=== PATIENT | male | born 1945 | race Caucasian/White ===

== ENCOUNTER 2019-07-15 13:50 | Emergency (ER) | payer MEDICARE, OTHER ==
[~2019-07-15] VITALS: Ht 177.8 cm; Wt 83.9 kg
--- OUTSIDE RECORDS SUMMARY | ~2019-07-15 | XMS | Clinical Summary ---
Demographics + + + | Address | [address] | | | [place] [address] | + + + | Home Phone | | + + + | Preferred Language | Unknown | + + + | Marital Status | | + + + | Taoism Affiliation | 1041 | + + + | Race | Unknown | + + + | Ethnic Group | Unknown | + + + Author + + + | Author | [facility] | | | and [place] | + + + | Organization | [facility] | | | and [place] | + + + | Address | Unknown | + + + | Phone | Unavailable | + + + Support + + +---------+ + | Name | Relationship | Address | Phone | + + +---------+ + | RICCI CHOI ECON | Unknown | | + + +---------+ + Care Team Providers + +------+ + | Care Central Melt Specialist Name | Role | Phone | + +------+ + PCP | Unavailable | + +------+ + Allergies Not on File Medications Not on file Active Problems Not on file Social History + +-------+ +--------+------+ | Tobacco [...] | + + Last Filed Vital Signs Not on file Plan of Treatment + + + + [...] | | + + + + + Results Not on filefrom Last 3 Months"
--- OUTSIDE RECORDS SUMMARY | ~2019-07-15 | XMS | Clinical Summary ---
Demographics + + + | Address | [address] | | | [place] [address] | + + + | Home Phone | | + + + | Preferred Language | Unknown | + + + | Marital Status | | + + + | Latter-Day Affiliation | 1041 | + + + | Race | Unknown | + + + | Ethnic Group | Unknown | + + + Author + + + | Author | [facility] | | | and [place] | + + + | Organization | [facility] | | | and [place] [...] Team Providers + +------+ + | Care Tone Cabinet Assembler Name | Role | Phone | [...]
--- OUTSIDE RECORDS SUMMARY | 2019-07-15 13:52 | XMS ---
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 Shavon has no Care Guidelines for this patient. Cesar VISIT COUNT (12 MO.) 1 ADRIÁN Saldaña TOTAL 1 NOTE: Visits indicate total known visits. ED/UCC VISIT TRACKING (12 MO.) 07/15/2019 13:50 ADRIÁN Sims OR TYPE: Emergency COMPLAINT: - FALL/EXTREMITY PAIN INPATIENT VISIT TRACKING (12 MO.) No inpatient visits to display in this time frame [email or web address]
[2019-07-15] MEDS ORDERED: COZAAR100 MG PO (14:25)
[2019-07-15] MEDS ORDERED: ULTRAM50 MG PO ×2 (14:29→14:30)
[2019-07-15] MEDS ORDERED: TIMOLOL MALEATE5 M4 OU (14:31)
--- NOTE | 2019-07-16 07:26 | EKG ---
[facility] [address] [facility] [place] [address] Signed Sinus rhythm with occasional premature ventricular complexes Left axis deviation Low voltage QRS T wave abnormality, consider anterior ischemia Abnormal ECG Confirmed by NIMISHA DAO MD ([id number]) on 07/16/2019 7:26:18 AM Electronically Signed By: NIMISHA DAO MD 07/16/19 0726 PATIENT NAME: DAWIT CHOI JR Electrocardiogram DATE OF : 43 PHYSICIAN: NIMISHA DAO MD REPORT #: [id number] REPORT IS CONFIDENTIAL AND NOT TO BE RELEASED WITHOUT AUTHORIZATION
== END 2019-07-15 17:15 | disposition short-term general hospital (02) ==
LOC: ED 13:50
DX: S72.002A Fracture of unspecified part of neck of left femur, initial encounter for closed fracture (principal); I10 Essential (primary) hypertension; Z86.73 Personal history of transient ischemic attack (TIA), and cerebral infarction without residual deficits; Z87.891 Personal history of nicotine dependence; Z79.899 Other long term (current) drug therapy; X58.XXXA Exposure to other specified factors, initial encounter
CPT/HCPCS: 73502; 73552; 93005; 93010; 96374; 96376; 99284-25; J1170

== ENCOUNTER 2019-07-18 10:15 | Inpatient (IN) | payer MEDICARE, OTHER ==
[~2019-07-18] VITALS: Ht 177.8 cm; Wt 83.9 kg
--- OUTSIDE RECORDS SUMMARY | ~2019-07-18 | XMS | Clinical Summary ---
Demographics + + + | Address | [address] | | | [place] [address] | + + + | Home Phone | | + + + | Preferred Language | Unknown | + + + | Marital Status | | + + + | Shinto Affiliation | 1041 | + + + | Race | Unknown | + + + | Ethnic Group | Unknown | + + + Author + + + | Author | [facility] | | | and [place] | + + + | Organization | [facility] | | | and [place] | + + + | Address | Unknown | + + + | Phone | Unavailable | + + + Support + + +---------+ + | Name | Relationship | Address | Phone | + + +---------+ + | RICCI HANDLEY | ECON | Unknown | | + + +---------+ + Care Team Providers + +------+ + | Care Machine Crater Name | Role | Phone | + +------+ + | No, Physician | PCP | Unavailable | + +------+ + Allergies No Known Allergies Medications + + + +---------+------+------+-------+ | Medication | Sig | Dispensed | Refills | Star | End | Statu | | | | | | t | Date | s | | | | | | Date | | | + + + +---------+------+------+-------+ | timolol maleate | Place 1 drop into | | 0 | | | Activ | | (TIMOPTIC) 0.25% | both eyes 2 times | | | | | e | | ophthalmic solution | daily. | | | | | | + + + +---------+------+------+-------+ | clopidogrel | Take 75 mg by mouth | | 0 | | | Activ | | (PLAVIX) 75 mg | Daily. | | | | | e | | tablet | | | | | | | + + + +---------+------+------+-------+ | amLODIPine | Take 1 tablet by | 30 | 0 | 10/3 | | Activ | | (NORVASC) 5 mg | mouth Daily. | tablet | | 0/20 | | e | | tablet | | | | 19 | | | + + + +---------+------+------+-------+ | enoxaparin | Inject 0.4 mLs under | 3 mL | 0 | 10/3 | 11/0 | Activ | | (LOVENOX) 40 mg/0.4 | the skin every 24 | | | 0/20 | 6/20 | e | | mL injection | hours for 7 days. | | | 19 | 19 | | + + + +---------+------+------+-------+ | oxyCODONE | Take 1 tablet by | 10 | 0 | 10/3 | | Activ | | (ROXICODONE) 5 mg | mouth every 8 hours | tablet | | 0/20 | | e | | tablet | as needed (severe | | | 19 | | | | | pain). | | | | | | + + + +---------+------+------+-------+ | senna (SENOKOT) | Take 1 tablet by | 14 | 0 | 10/3 | | Activ | | 8.6 mg tablet | mouth 2 times daily. | tablet | | 0/20 | | e | | | | | | 19 | | | + + + +---------+------+------+-------+ | famotidine | Take 1 tablet by | 60 | 0 | 10/3 | | Activ | | (PEPCID) 20 mg | mouth 2 times daily. | tablet | | 0/20 | | e | | tablet | | | | 19 | | | + + + +---------+------+------+-------+ | losartan (COZAAR) | Take 100 mg by mouth | | 0 | | 10/3 | Disco | | 100 MG tablet | Daily. | | | | 0/20 | ntinu | | | | | | | 19 | ed | + + + +---------+------+------+-------+ | amLODIPine | Take 10 mg by mouth | | 0 | | 10/2 | Disco | | (NORVASC) 5 mg | Daily. | | | | 7/20 | ntinu | | tablet | | | | | 19 | ed | + + + +---------+------+------+-------+ | traMADol (ULTRAM) | Take 50-100 mg by | | 0 | | 10/3 | Disco | | 50 mg tablet | mouth 2 times daily. | | | | 0/20 | ntinu | | | | | | | 19 | ed | + + + +---------+------+------+-------+ | amLODIPine | Take 10 mg by mouth | | 0 | | 10/3 | Disco | | (NORVASC) 10 MG | Daily. | | | | 0/20 | ntinu | | tablet | | | | | 19 | ed | + + + +---------+------+------+-------+ Active Problems + + + | Problem | Noted Date | + + + | Closed displaced subtrochanteric fracture of left femur, initial | 07/15/2019 | | encounter | | + + + + + | Overview: Added automatically from request for surgery | | [id number] | + + + + + | History of CVA with residual deficit | 07/15/2019 | + + + | Essential hypertension | 07/15/2019 | + + + Encounters +--------+ + + + + | Date | Type | Specialty | Care Team | Description | +--------+ + + + + | 07/15/ | Anesthesia | | Edie Mace, | | | 2018 | Event | | MD | | +--------+ + + + + | 07/15/ | Surgery | | | ORIF IM RODDING | | 2019 | | | | FEMUR | +--------+ + + + + | 07/15/ | Hospital | General Surgery | Jose Martin Paulino MD | Closed displaced | | 2018 - | Encounter | | Greyson Corona, | subtrochanteric | | | | | MD Coles, | fracture of left | | 07/18/ | | | MD Sharita | femur, initial | | 2018 | | | | encounter (HCC) | | | | | | (Primary Dx); Closed | | | | | | displaced | | | | | | subtrochanteric | | | | | | fracture of left | | | | | | femur, initial | | | | | | encounter (HCC); | | | | | | History of CVA with | | | | | | residual deficit; | | | | | | Essential | | | | | | hypertension; | | | | | | Anemia, normocytic | | | | | | normochromic | +--------+ + + + + | 07/15/ | Imaging | Radiology | Provider, | | | 2018 | Exam | | MD Nancy | | +--------+ + + + + | 07/15/ | Imaging | Radiology | Provider, | | | 2019 | Exam | | Historical, MD | | +--------+ + + + + from Last 3 Months Social History + +-------+ +--------+------+ | Tobacco Use | Types | Packs/Day | Years | Date | | | | | Used | | + +-------+ +--------+------+ | Former Smoker | | | | | + +-------+ +--------+------+ + +---+---+---+ | Smokeless Tobacco: | | | | | Never Used | | | | + +---+---+---+ + + +---------+ + | Alcohol Use | Drinks/We | oz/Week | Comments | | | ek | | | + + +---------+ + | Not Currently | | | | + + +---------+ + + + + | Sex Assigned at | Date Recorded | | | | + + + | Not on file | | + + + + + + + | Job Start Date | Occupation | Industry | + + + + | Not on file | Not on file | Not on file | + + + + + + + + | Travel History | Travel Start | Travel End | + + + + + + | No recent travel history available. | + + Last Filed Vital Signs + + + + | Vital Sign | Reading | Time Taken | + + + + | Blood Pressure | 136/71 | 07/18/20191105 PDT | + + + + | Pulse | 84 | 07/18/20191105 PDT | + + + + | Temperature | 36.8 C (98.3 F) | 07/18/20191105 PDT | + + + + | Respiratory Rate | 18 | 07/18/20191105 PDT | + + + + | Oxygen Saturation | 99% | 07/18/2019 1106 PDT | + + + + | Inhaled Oxygen | - | - | | Concentration | | | + + + + | Weight | 84.8 kg (187 lb) | 07/16/2019 0000 PDT | + + + + | Height | 177.8 cm (5' 10") | 07/16/2019 0000 PDT | + + + + | Body Mass Index | 26.83 | 07/16/2019 0000 PDT | + + + + Plan of Treatment + + + + + | Health Maintenance | Due Date | Last Done | Comments | + + + + + | Vaccine: | | | | | Dtap/Tdap/Td (1 - | 3 | | | | Tdap) | | | | + + + + + | Colorectal Cancer | | | | | Screening | 4 | | | | (Colonoscopy) | | | | + + + + + | Vaccine: Zoster (1 | | | | | of 2) | 4 | | | + + + + + | AAA Screening | | | | | | 9 | | | + + + + + | Vaccine: | | | | | Pneumococcal 65+ | 9 | | | | Low/Medium Risk (1 | | | | | of 2 - PCV13) | | | | + + + + + | Vaccine: Influenza | | | | | (#1) | 9 | | | + + + + + | Adult Annual | | | | | Wellness Visit | 9 | | | + + + + + Implants + +-------+--------+ +--------+--------+--------+ | Implanted | Type | Area | Manufacture | Device | Shelf | Model | | | | | r | | Expira | / | | | | | | Identi | tion | Serial | | | | | | fier | Date | / Lot | + +-------+--------+ +--------+--------+--------+ | Nail G3 Lt 125d [id number] - | Nail | Left: | ANGELICA | | 12/17/ | 3525-1 | | SnaImplanted: Qty: 1 on | | Femur | MEDICAL - | | 2023 | [id number] | | 07/15/2019 by Juani | | | STRY | | | /NA | | Will Irving MD | | | | | | /[id number] | | | | | | | | ES | + +-------+--------+ +--------+--------+--------+ | Screw Lag Gamma3 Ti | Screw | Left: | ANGELICA | | 01/16/ | 3060-0 | | [id number] - SnaImplanted: | | Femur | MEDICAL - | | 2023 | 110S | | Qty: 1 on 07/15/2019 by | | | STRY | | | /NA | | Will Gloria MD | | | | | | /[id number] | | | | | | | | C9 | + +-------+--------+ +--------+--------+--------+ | Screw Santos F/T T2 Ti 5x52.5mm | Screw | Left: | ANGELICA | | 03/18/ | 1896-5 | | - SnaImplanted: Qty: 1 on | | Femur | MEDICAL - | | 2023 | [id number] | | 07/15/2019 by Juani, | | | STRY | | | /NA | | Will Irving MD | | | | | | /[id number] | | | | | | | | 0D | + +-------+--------+ +--------+--------+--------+ | Screw Santos F/T T2 Ti 5x57.5mm | Screw | Left: | ANGELICA | | 02/16/ | 1896-5 | | - SnaImplanted: Qty: 1 on | | Femur | MEDICAL - | | 2021 | [id number] | | 07/15/2019 by Juani, | | | FRANCIA | | | /NA | | Will Irving MD | | | | | | /[id number] | | | | | | | | 21 | + +-------+--------+ +--------+--------+--------+ Procedures + +--------+ + + + | Procedure Name | Priori | Date/Time | Associated Diagnosis | Comments | | | ty | | | | + +--------+ + + + | RENAL FUNCTION PANEL | Routin | 07/18/2019 | | Results for this | | | e | 4:47 PDT | | procedure are in the | | | | | | results section. | + +--------+ + + + | CBC NO DIFFERENTIAL | Routin | 07/18/2019 | | Results for this | | | e | 4:47 PDT | | procedure are in the | | | | | | results section. | + +--------+ + + + | URINALYSIS WITH | Routin | 07/16/2019 | | Results for this | | MICROSCOPIC WITH | e | 9:10 PDT | | procedure are in the | | CULTURE IF INDICATED | | | | results section. | + +--------+ + + + | CULTURE, URINE | Routin | 07/16/2019 | | Results for this | | | e | 9:10 PDT | | procedure are in the | | | | | | results section. | + +--------+ + + + | CBC NO DIFFERENTIAL | Routin | 07/16/2019 | | Results for this | | | e | 4:40 PDT | | procedure are in the | | | | | | results section. | + +--------+ + + + | BASIC METABOLIC | Routin | 07/16/2019 | | Results for this | | PANEL | e | 4:40 PDT | | procedure are in the | | | | | | results section. | + +--------+ + + + | FL C ARM | Routin | 07/15/2019 | | Results for this | | | e | 23:03 PDT | | procedure are in the | | | | | | results section. | + +--------+ + + + | ANE AIRWAY NOTE | Routin | 07/15/2019 | | Results for this | | | e | 21:51 PDT | | procedure are in the | | | | | | results section. | + +--------+ + + + | ORIF IM RODDING | | 07/15/2019 | Closed displaced | | | FEMUR | | 21:00 PDT | subtrochanteric | | | | | | fracture of left | | | | | | femur, initial | | | | | | encounter (HCC) | | + +--------+ + + + | PROTIME INR | STAT | 07/15/2019 | | Results for this | | | | 19:24 PDT | | procedure are in the | | | | | | results section. | + +--------+ + + + | BASIC METABOLIC | STAT | 07/15/2019 | | Results for this | | PANEL | | 19:24 PDT | | procedure are in the | | | | | | results section. | + +--------+ + + + | CBC NO DIFFERENTIAL | STAT | 07/15/2019 | | Results for this | | | | 19:24 PDT | | procedure are in the | | | | | | results section. | + +--------+ + + + | XR HIP LEFT 2-3 | Routin | 07/15/2019 | | Results for this | | VIEWS | e | 14:45 PDT | | procedure are in the | | | | | | results section. | + +--------+ + + + | XR FEMUR LEFT 2+VW | Routin | 07/15/2019 | | Results for this | | | e | 14:30 PDT | | procedure are in the | | | | | | results section. | + +--------+ + + + from Last 3 Months Results CBC no Differential (07/18/2019 4:47 PDT)Only the most recent of 3 results within the time period is included. + + + + + + | Component | Value | Ref Range | Performed | Pathologist | | | | | At | Signature | + + + + + + | WBC | 9.36 | 3.80 - 11.00 | [facility] | | | | | K/uL | LABORATORY | | + + + + + + | RBC | 2.55 (L) | 4.20 - 5.70 | [facility] | | | | | M/uL | LABORATORY | | + + + + + + | Hemoglobin | 8.0 (L) | 13.2 - 17.0 | [facility] | | | | | g/dL | LABORATORY | | + + + + + + | Hematocrit | 22.9 (L) | 39.0 - 50.0 % | [facility] | | | | | | LABORATORY | | + + + + + + | MCV | 89.6 | 80.0 - 100.0 fl | [facility] | | | | | | LABORATORY | | + + + + + + | MCH | 31.5 | 27.0 - 34.0 pg | [facility] | | | | | | LABORATORY | | + + + + + + | MCHC | 35.1 | 32.0 - 35.5 | [facility] | | | | | g/dL | LABORATORY | | + + + + + + | RDW-SD | 42.4 | 37 - 53 fl | [facility] | | | | | | LABORATORY | | + + + + + + | Platelet | 204 | 150 - 400 K/uL | [facility] | | | Count | | | LABORATORY | | + + + + + + | MPV | 7.0Comment: Testing | fl | [facility] | | | | performed at [facility], [address] | | LABORATORY | | | | [address], | | | | | | [place] [address] | | | | + + + + + + + + | Specimen | + + | Blood | + + + + + + + | Performing | Address | City/State/Zipcode | Phone Number | | Organization | | | | + + + + + | [facility] | [address] | [place] [address] | [phone] | + + + + + Renal Function Panel (07/18/2019 4:47 PDT) + + + + + + | Component | Value | Ref Range | Performed | Pathologist | | | | | At | Signature | + + + + + + | Na | 141 | 135 - 145 | [facility] | | | | | mmol/L | LABORATORY | | + + + + + + | K | 3.8 | 3.5 - 4.9 | [facility] | | | | | mmol/L | LABORATORY | | + + + + + + | Cl | 109 | 99 - 109 mmol/L | [facility] | | | | | | LABORATORY | | + + + + + + | CO2 | 25 | 23 - 32 mmol/L | [facility] | | | | | | LABORATORY | | + + + + + + | Anion Gap | 11 | 5 - 20 mmol/L | [facility] | | | | | | LABORATORY | | + + + + + + | Glucose | 92 | 65 - 99 mg/dL | [facility] | | | | | | LABORATORY | | + + + + + + | BUN | 10 | 8 - 25 mg/dL | [facility] | | | | | | LABORATORY | | + + + + + + | Creatinine | 0.7 | 0.70 - 1.30 | [facility] | | | | | mg/dL | LABORATORY | | + + + + + + | Calcium | 8.0 (L) | 8.5 - 10.5 | [facility] | | | | | mg/dL | LABORATORY | | + + + + + + | Albumin | 2.5 (L) | 3.3 - 4.8 g/dL | [facility] | | | | | | LABORATORY | | + + + + + + | Phosphorus | 2.0 (L) | 2.3 - 4.8 mg/dL | [facility] | | | | | | LABORATORY | | + + + + + + | Estimated | >60Comment: GFR <60: | >60 | [facility] | | | GFR | CHRONIC KIDNEY DISEASE, | mL/min/1.73m2 | LABORATORY | | | | IF FOUND OVER A 3 MONTH | | | | | | PERIOD.GFR <15: KIDNEY | | | | | | FAILURE.FOR | | | | | | AMERICANS, MULTIPLY THE | | | | | | CALCULATED GFR BY | | | | | | 1.210.This eGFR is | | | | | | calculated using the | | | | | | MDRD [facility] traceable | | | | | | equation.Testing | | | | | | performed at [facility], [address] | | | | | | [facility], | | | | | | [place] [address] | | | | + + + + + + + + | Specimen | + + | Blood | + + + + + + + | Performing | Address | City/State/Zipcode | Phone Number | | Organization | | | | + + + + + | [facility] | [address] | [place] [address] | [phone] | + + + + + Urinalysis with Microscopic with Culture if Indicated (07/16/2019 9:10 PDT) + + + + + + | Component | Value | Ref Range | Performed | Pathologist | | | | | At | Signature | + + + + + + | Color, UA | YELLOW | | [facility] | | | | | | LABORATORY | | + + + + + + | Clarity, UA | CLEAR | | [facility] | | | | | | LABORATORY | | + + + + + + | Specific | 1.030 | 1.002 - 1.030 | [facility] | | | [place], | | | LABORATORY | | | Urine | | | | | + + + + + + | Leukocyte | NEGATIVE | NEG | [facility] | | | esterase, | | | LABORATORY | | | UA | | | | | + + + + + + | Nitrite, UA | NEGATIVE | NEG | [facility] | | | | | | LABORATORY | | + + + + + + | Urobilinoge | <1.6 | <1.6 mg/dL | [facility] | | | n, Ur | | | LABORATORY | | + + + + + + | Protein, | NEGATIVE | NEG mg/dL | [facility] | | | Urine | | | LABORATORY | | | (mg/dL) | | | | | + + + + + + | pH, Urine | 5.0 | 5.0 - 8.0 | [facility] | | | | | | LABORATORY | | + + + + + + | Blood, UA | NEGATIVE | NEG | [facility] | | | | | | LABORATORY | | + + + + + + | Ketones, UA | 20 (A) | NEG mg/dL | [facility] | | | | | | LABORATORY | | + + + + + + | Bilirubin, | NEGATIVE | NEG | [facility] | | | UA | | | LABORATORY | | + + + + + + | Glucose, Ur | NEGATIVE | NEG mg/dL | [facility] | | | | | | LABORATORY | | + + + + + + | WBC UA | 0-2 | 0 - 5 /hpf | [facility] | | | | | | LABORATORY | | + + + + + + | RBC UA | 0-2 | 0 - 2 /hpf | [facility] | | | | | | LABORATORY | | + + + + + + | SQUAMOUS | NONE SEEN | /lpf | [facility] | | | EPITHELIAL | | | LABORATORY | | | UA | | | | | + + + + + + | BACTERIA UA | 1+ (A)Comment: Testing | NONE | [facility] | | | | performed at [facility], [address] | | LABORATORY | | | | [address], | | | | | | [place] [address] | | | | + + + + + + + + | Specimen | + + | Urine | + + + + + + + | Performing | Address | City/State/Zipcode | Phone Number | | Organization | | | | + + + + + | [facility] | [address] | [place] [address] | [phone] | + + + + + Culture, Urine (07/16/2019 9:10 PDT) + + + + + + | Component | Value | Ref Range | Performed | Pathologist | | | | | At | Signature | + + + + + + | RESULT | NO GROWTH | | [facility] | | | | | | LAB[facility]ATORY | | + + + + + + | RESULT | Testing performed at | | [facility] | | | | [facility], [address] [facility] | | LABORATORY | | | | [place] | | | | | | [id number]: Testing | | | | | | performed at [facility], [address] | | | | | | [facility] [place], | | | | | | [place] [address] | | | | + + + + + + + + | Specimen | + + | Urine | + + + + + + + | Performing | Address | City/State/Zipcode | Phone Number | | Organization | | | | + + + + + | [facility] | [address] | [place] [address] | [phone] | + + + + + Basic Metabolic Panel (07/16/2019 4:40 PDT)Only the most recent of 2 results within the period is included. + + + + + + | Component | Value | Ref Range | Performed | Pathologist | | | | | At | Signature | + + + + + + | Na | 140 | 135 - 145 | [facility] | | | | | mmol/L | LABORATORY | | + + + + + + | K | 4.2 | 3.5 - 4.9 | [facility] | | | | | mmol/L | LABORATORY | | + + + + + + | Cl | 107 | 99 - 109 mmol/L | [facility] | | | | | | LABORATORY | | + + + + + + | CO2 | 24 | 23 - 32 mmol/L | [facility] | | | | | | LABORATORY | | + + + + + + | Anion Gap | 13 | 5 - 20 mmol/L | [facility] | | | | | | LABORATORY | | + + + + + + | Glucose | 146 (H) | 65 - 99 mg/dL | [facility] | | | | | | LABORATORY | | + + + + + + | BUN | 20 | 8 - 25 mg/dL | [facility] | | | | | | LABORATORY | | + + + + + + | Creatinine | 1.1 | 0.70 - 1.30 | [facility] | | | | | mg/dL | LABORATORY | | + + + + + + | BUN/Creatin | 18 | | [facility] | | | ine Ratio | | | LABORATORY | | + + + + + + | Calcium | 8.5 | 8.5 - 10.5 | [facility] | | | | | mg/dL | LABORATORY | | + + + + + + | Estimated | >60Comment: GFR <60: | >60 | [facility] | | | GFR | CHRONIC KIDNEY DISEASE, | mL/min/1.73m2 | LABORATORY | | | | IF FOUND OVER A 3 MONTH | | | | | | PERIOD.GFR <15: KIDNEY | | | | | | FAILURE.FOR | | | | | | AMERICANS, MULTIPLY THE | | | | | | CALCULATED GFR BY | | | | | | 1.210.This eGFR is | | | | | | calculated using the | | | | | | MDRD [facility] traceable | | | | | | equation.Testing | | | | | | performed at [facility], [address] | | | | | | [facility], | | | | | | [place] [address] | | | | + + + + + + + + | Specimen | + + | Blood | + + + + + + + | Performing | Address | City/State/Zipcode | Phone Number | | Organization | | | | + + + + + | [facility] | [address] | [place] [address] | [phone] | + + + + + FL Matthew (07/15/2019 23:03 PDT) + + | Specimen | + + | | + + + + + | Impressions | Performed At | + + + | Fluoroscopic service for procedure. Signed by: Mariza | [facility] | | Christin Leroy Sign Date/Time: 07/16/2019 12:23 AM | | + + + + + + | Narrative | Performed At | + + + | FLUOROSCOPY C ARM CLINICAL INFORMATION: Left femur ORIF- | [facility] | | Gamma Nail FINDINGS: Fluoro Time: 201.3 seconds. Number of | | | images: 5 Air Kerma: 24.44 mGy Fluoroscopic assistance for | | | internal fixation of the left femur. Please refer to surgical notes | | | for details. | | + + + + + | Procedure Note | + + | Ron Cruz Results In - 07/16/2019 0026 PDT | | FLUOROSCOPY C ARM | | | | CLINICAL INFORMATION: | | Left femur ORIF- Gamma Nail | | | | FINDINGS: | | Fluoro Time: 201.3 seconds. Number of images: 5 Air Kerma: 24.44 mGy | | | | Fluoroscopic assistance for internal fixation of the left femur. | | Please refer to surgical notes for details. | | | | IMPRESSION: | | Fluoroscopic service for procedure. | | | | | | | | Signed by: Mariaa Dawkins Sadaf | | Sign Date/Time: 07/16/2019 12:23 AM | + + + +---------+ + + | Performing | Address | City/State/Zipcode | Phone Number | | Organization | | | | + +---------+ + + | [facility] | | | | + +---------+ + + Airway (07/15/2019 21:51 PDT) + + + | Narrative | Performed At | + + + | Edie Mace MD 07/15/2019 21:52 Anesthesia Airway | | | Placement 07/15/2019 21:27 Preprocedure check: patient | | | identified, oxygen, airway assessed, patient reassessment prior to | | | induction, airway equipment checked and suction Mask | | | ventilation: easy Successful technique: Mac Laryngoscope blade | | | size: 3 Airway grade: 1 (Full view of glottis) Other equipment: | | | stylette Attempts: 1 Airway type: endotracheal Size: 8 Cuffed: | | | cuffed Route, reference point: right side of mouth Tube depth: 23 cm | | | Tube secured with: adhesive tape Trauma: none Tube placement | | | verification: bilateral chest rise and carbon dioxide detection | | | Performing provider: Edie Mace MD Please see | | | intraoperative grid for any additional medication documentation. | | + + + + + | Procedure Note | + + | Edie Mace MD - 07/15/2019 2151 PDT Anesthesia Airway Nairnftbq14/27/2019 | | 21:27Preprocedure check: patient identified, oxygen, airway assessed, patient | | reassessment prior to induction, airway equipment checked and suctionMask ventilation: | | easySuccessful technique: MacLaryngoscope blade size: 3 Airway grade: 1 (Full view of | | glottis)Other equipment: styletteAttempts: 1Airway type: endotrachealSize: 8Cuffed: | | cuffedRoute, reference point: right side of mouthTube depth: 23 cmTube secured with: | | adhesive tapeTrauma: noneTube placement verification: bilateral chest rise and carbon | | dioxide detectionPerforming provider: MYLES Mayenlease see intraoperative grid | | for any additional medication documentation. | |Attempts: 1 | |Airway type: endotracheal | |Size: 8 | |Cuffed: cuffed | |Route, reference point: right side of mouth | |Tube depth: 23 cm | |Tube secured with: adhesive tape | |Trauma: none | |Tube placement verification: bilateral chest rise and carbon dioxide detection | |Performing provider: Edie Mace MD | | | | | | | |Please see intraoperative grid for any additional medication documentation. | + + Protime INR (07/15/2019 19:24 PDT) + + + + + + | Component | Value | Ref Range | Performed | Pathologist | | | | | At | Signature | + + + + + + | INR | 1.0Comment: REFERENCE | | [facility] | | | | RANGE:0.9 - | | LABORATORY | | | | 1.2 NON-ANTICOAGULATE | | | | | | D2.0 - 3.0 ALL OTHER | | | | | | THERAPEUTIC | | | | | | INDICATIONS2.5 - 3.5 | | | | | | MECHANICAL HEART VALVES, | | | | | | RECURRENT OR SYSTEMIC | | | | | | EMBOLISMTesting | | | | | | performed at [facility];[address] | | | | | [address];[place], [place] | | | | | | [address] | | | | + + + + + + + + | Specimen | + + | Blood | + + + + + + + | Performing | Address | City/State/Zipcode | Phone Number | | Organization | | | | + + + + + | [facility] | [address] | [place] [address] | [phone] | + + + + + XR Hip Left 2-3 Views (07/15/2019 14:45 PDT) + + | Specimen | + + | | + + + + + | Narrative | Performed At | + + + | External films for comparison only | [facility] | | | | | No results will be in the chart. | | + + + + +---------+ + + | Performing | Address | City/State/Zipcode | Phone Number | | Organization | | | | + +---------+ + + | [facility] | | | | + +---------+ + + XR Femur Left 2+Vw (07/15/2019 14:30 PDT) + + | Specimen | + + | | + + + + + | Narrative | Performed At | + + + | External films for comparison only | [facility] | | | | | No results will be in the chart. | | + + + + +---------+ + + | Performing | Address | City/State/Zipcode | Phone Number | | Organization | | | | + +---------+ + + | [facility] | | | | + +---------+ + + from Last 3 Months Insurance + +--------+ +--------+ + +--------+ | Payer | Benefi | Subscriber | Effect | Phone | Address | Type | | | t Plan | ID | maile | | | | | | / | | Dates | | | | | | Group | | | | | | + +--------+ +--------+ + +--------+ | MEDICARE | MED[employer] | [id number] | 05/20/20 | [phone] | | Medica | | | RE | | 09-Pre | 5 | | re | | | PART A | | sent | | | | | | AND B | | | | | | + +--------+ +--------+ + +--------+ | MODA | MODA | [id number] | 09/19/19 | [phone] | [address] | Indemn | | | HEALTH | | 19-Pre | 9 | [id number] | ity | | | MDCR | | sent | | [place], | | | | [place] | | | | [place] [id number] | | + +--------+ +--------+ + +--------+ + +--------+ +--------+ + + | Guarantor Name | Accoun | Relation to | Date | Phone | Billing Address | | | t Type | Patient | of | | | | | | | | | | + +--------+ +--------+ + + | Constantin Handley Melina | Person | Self [birth year] | [address] | | | al/Adam | | 1945 | [phone] | [place] | | | [place] | | | 0 (Home) | [phone] | + +--------+ +--------+ + + Advance Directives Patient has advance care planning documents, and code status on file. For more information, please contact:[facility] [place] [address] + + + + + | Code Status | Date | Date | Comments | | | Activated | Inactivated | | + + + + + | Full Code | 07/15/2019 | | | | | 19:16 | | | + + + + +
--- OUTSIDE RECORDS SUMMARY | ~2019-07-18 | XMS | Encounter Summary ---
Demographics + + + | Address | [address] | | | [place] [address] | + + + | Home Phone | | + + + | Preferred Language | Unknown | + + + | Marital Status | | + + + | Latter-Day Affiliation | 1041 | + + + | Race | Unknown | + + + | Ethnic Group | Unknown | + + + Author + + + | Author | [facility] | | | and [place] | + + + | Organization | [facility] | | | and [place] | + + + | Address | Unknown | + + + | Phone | Unavailable | + + + Support + + +---------+ + | Name | Relationship | Address | Phone | + + +---------+ + | RICCI CHOI | ECON | Unknown | | + + +---------+ + Care Team Providers + +------+ + | Care Grinding Machine Tender Name | Role | Phone | + +------+ + | No, Physician | PCP | Unavailable | + +------+ + Encounter Details +--------+ + + + + | Date | Type | Department | Care Team | Description | +--------+ + + + + | 07/15/ | Imaging | [facility] | Provider, | | | 2019 | Exam | [facility] | MD [address] | | | | | IMAGING | [place] | | | | | [phone] | [place] [id number] | | +--------+ + + + + Social History + +-------+ +--------+------+ | Tobacco Use | Types | Packs/Day | Years | Date | | | | | Used | | + +-------+ +--------+------+ | Never Assessed | | | | | + +-------+ +--------+------+ + + + | Sex Assigned at [...] recent travel history available. | + + documented as of this encounter Plan of Treatment Not on filedocumented as of this encounter Procedures + +--------+ + + + | [...] section. | + +--------+ + + + documented in this encounter Visit Diagnoses Not on filedocumented in this encounter"
--- OUTSIDE RECORDS SUMMARY | ~2019-07-18 | XMS | Encounter Summary ---
Demographics + + + | Address | [address] | | | [place] [address] | + + + | Home Phone | | + + + | Preferred Language | Unknown | + + + | Marital Status | | + + + | Amish Affiliation | [id number] | + + + | Race | Unknown | + + + | Ethnic Group | Unknown | + + + Author + + + | Author | [facility] | | | and [place] | + + + | Organization | [facility] | | | [...] Team Providers + +------+ + | Care Bunk Assembler Name | Role | Phone | + +------+ + | No, Physician | PCP | Unavailable | + +------+ + Reason for Visit Auth/Cert +--------+--------+ + + + + | Status | Reason | Specialty | Diagnoses / | Referred By | Referred To | | | | | Procedures | Contact | Contact | +--------+--------+ + + + + | | | | Diagnoses | | | | | | | Femur | | | | | | | fracture | | | +--------+--------+ + + + + Encounter Details +--------+---------+ + + + | Date | Type | Department | Care Team | Description | +--------+---------+ + + + | 07/15/ | Surgery | [facility] | | [facility] | | 2019 | | [facility] | | [facility]EM[facility] | | | | OPERATING ROOM [address] | | | | | | [facility] | | | | | | [place], [place] | | | | | | [address] | | | | | | [phone] | | | +--------+---------+ + + + Social History + +-------+ [...] + + documented as of this encounter Last Filed Vital Signs + + + + | Vital Sign | Reading | Time Taken | + + + + | Blood Pressure | 136/71 | 07/18/2019 1106 PDT | + + + + | Pulse | 84 | 07/18/20191105 PDT | + + + + | Temperature | 36.8 C (98.3 F) | 07/18/20191105 PDT | + + + + | Respiratory Rate | 18 | 07/18/20191105 PDT | + + + + | Oxygen Saturation | 99% | 07/18/20191105 PDT | + + + [...] 0000 PDT | + + + + documented in this encounter Discharge Summaries Sharita Colse MD - 07/18/2019 1107 PDT [facility]: Hospitalist Discharge Summary Date of Admission: 07/15/2019 Date of Discharge: 07/18/2019 Discharge Provider: Sharita Coles MD Consulting Provider: Dr. Gloria -Orthopedics discharge Diagnoses: Principal Problem: Closed displaced subtrochanteric fracture of left femur, initial encounter Active Problems: History of CVA with residual deficit Essential hypertension BRIEF HISTORY OF PRESENTATION: Constantin Handley is a 74 y.o. male with past medical history of HTN, hx of CVA with residual R sided weakness and impaired vision, who presented with a ground level fall, and sustained a L sided closed displaced subtrochanteric fracture of L femur, s/p ORIF on 06/20 04[address] Gloria. [facility]ics recommends continued DVT ppx. This should be continued until patient is more ambulatory. Patient has downtrending anemia, normocytic with no evidence of GI bleed. His last colonoscopy was >10 years ago, normal per report. I did extensive discussion with pt an d on discharge - summarized below, also placed on his discharge instructions. Orthoped ics would like to see the patient in 2 weeks for suture removal and xray of the femur. Laney ent has also had a good BM today. Stable VS. I discussed the discharge instructions with you and your extensively. So that it is clear I am summarizing what we discussed here. You are being discharged to swing bed for re habilitation. Her orthopedist is cleared for discharge. I hope you do well in rehab. We abdelrahman leandro found you to have normocytic anemia during this admission. Your hemoglobin is trending down however I am not sure that her initial hemoglobin is truly reflective of your baseline hemoglobin. You have had normal blood pressure, stable vital signs and no reported gastroin testinal bleeding signs and symptoms. As per our discussion, your was going to find ou t what her baseline hemoglobin was. I will order a repeat CBC to be done at the swing bed. I will also order referral for home and family living professor sooner related you are going to be endosc opy to figure out if you do have chronic blood loss anemia. If the hemoglobin dropped to 7 or below you are probably going to need blood transfusion. You are recommended to have DVT prophylaxis by your orthopedist. Therefore you are being discharged on enoxaparin, I discus sed this with you and your . Once more ambulatory, this can be discontinued. The patient is symptomatically improved and medically stable on discharge. Patient is given information on new medication side effects. Questions answered. Patient and family in agre ement with discharge plans. Advised to follow up closely with PCP for post hospitalization f ollow up as well as specialists seen this admission if indicated below or as discussed. DISCHARGE EXAM Vital Signs: BP 130/60 | Pulse 89 | Temp 36.9 C (98.4 F) (Oral) | Resp 18 | Ht 1.778 m (5' 10") | Wt 84.8 kg (187 lb) | SpO2 99% | BMI 26.83 kg/m Constitutional: Alert and oriented to person, place, and time. Appears well-developed and well-nourished. HEENT: Neck supple, no JVD, non icteric sclera. Cardiovascular: Normal rate, regular rhythm, no murmur Pulmonary/Chest: Effort normal and breath sounds normal. No stridor. No respiratory distres s. no wheezes. no rales. Abdominal: Soft. Bowel sounds are normal. No distension.There is no tenderness. Extremeties/Musculoskeletal: No edema. Neurological: Alert and oriented to person, place, and time. Skin: Skin is warm. No diaphoresis. Psychiatric: dysphoric mood [facility] bed Condition: stable and improved Code Status: Full Code Follow up: Will Gloria MD [address] [facility] [id number] In [address] Jonas your PCP GI in [place] Discharge Medications New Medications Details enoxaparin 40 mg/0.4 mL injection Inject 0.4 mLs under the skin every 24 hours for 7 days. aka: LOVENOX famotidine 20 mg tablet Take 1 tablet by mouth 2 times daily. aka: PEPCID oxyCODONE 5 mg tablet Take 1 tablet by mouth every 8 hours as needed (severe pain). aka: ROXICODONE senna 8.6 mg tablet Take 1 tablet by mouth 2 times daily. aka: SENOKOT Changed Medications Details amLODIPine 5 mg tablet Take 1 tablet by mouth Daily. What changed: how much to take Another medication with the same name was removed. Continue taking this medication, and follow the directions you see here. aka: NORVASC Unchanged Medications Details clopidogrel 75 mg tablet Take 75 mg by mouth Daily. aka: PLAVIX timolol maleate 0.25% ophthalmic solution Place 1 drop into both eyes 2 times daily. aka: TIMOPTIC Discontinued Medications losartan 100 MG tablet aka: COZAAR traMADol 50 mg tablet aka: ULTRAM Discharge took >30 minutes, to include final examination, discussion of admission, and prep aration of prescriptions, instructions for on-going care, follow-up and documentation of dis charge summary. Portions of this chart may have been created with voice recognition software. Occasional wr gladis-word or "sound-alike" substitutions may have occurred, even after review, due to the inh erent limitations of voice recognition software. Please read the chart carefully and recogni ze, using context, where these substitutions have occurred. Personal communication is reques lito for any clarifications. Sharita Coles MD 07/18/2019 documented in this enc ounter Discharge Instructions Instructions Will Gloria MD - 07/18/2019I discussed the discharge instructions with you and your extensively. So that it is clear I am summarizing what we discussed here . You are being discharged to swing bed for rehabilitation. Her orthopedist is cleared for discharge. I hope you do well in rehab. We have found you to have normocytic anemia david lemus this admission. Your hemoglobin is trending down however I am not sure that her initial h emoglobin is truly reflective of your baseline hemoglobin. You have had normal blood pressu re, stable vital signs and no reported gastrointestinal bleeding signs and symptoms. As per our discussion, your was going to find out what her baseline hemoglobin was. I will o rder a repeat CBC to be done at the swing bed. I will also order referral for gastroenterol ogist sooner related you are going to be endoscopy to figure out if you do have chronic bloo d loss anemia. If the hemoglobin dropped to 7 or below you are probably going to need blood transfusion. You are recommended to have DVT prophylaxis by your orthopedist. Therefore y ou are being discharged on enoxaparin, I discussed this with you and your . Once more a mbulatory, this can be discontinued. For orthopedic follow-up if care can be coordinated closer to home this is acceptable for t he 2-week check. Would recommend incision examination and staple removal with x-rays of the left femur. No change in activity at that time. Plan to follow-up with Dr. Gloria at 8 w eeks postoperative with repeat x-rays AttachmentsThe following attachments cannot be sent through Care Everywhere.Enoxaparin inje ction (Spanish)Famotidine tablets or gelcaps (Spanish)Oxycodone tablets or capsules (Spanish )documented in this encounter Medications at Time of Discharge + + + +---------+ + + | Medication | Sig | Dispensed | Refills | Start | End Date | | | | | | Date | | + + + +---------+ + + | amLODIPine | Take 1 tablet by | 30 | 0 | 07/18/20 | | | (NORVASC) 5 mg | mouth Daily. | tablet | | 19 | | | tablet | | | | | | + + + +---------+ + + | clopidogrel | Take 75 mg by mouth | | 0 | | | | (PLAVIX) 75 mg | Daily. | | | | | | tablet | | | | | | + + + +---------+ + + | enoxaparin | Inject 0.4 mLs under | 3 mL | 0 | 07/18/20 | | | (LOVENOX) 40 mg/0.4 | the skin every 24 | | | 19 | 9 | | mL injection | hours for 7 days. | | | | | + + + +---------+ + + | famotidine | Take 1 tablet by | 60 | 0 | /30/20 | | | (PEPCID) 20 mg | mouth 2 times daily. | tablet | | 19 | | | tablet | | | | | | + + + +---------+ + + | oxyCODONE | Take 1 tablet by | 10 | 0 | //20 | | | (ROXICODONE) 5 mg | mouth every 8 hours | tablet | | 19 | | | tablet | as needed (severe | | | | | | | pain). | | | | | + + + +---------+ + + | senna (SENOKOT) | Take 1 tablet by | 14 | 0 | 07/18/20 | | | 8.6 mg tablet | mouth 2 times daily. | tablet | | 19 | | + + + +---------+ + + | timolol maleate | Place 1 drop into | | 0 | | | | (TIMOPTIC) 0.25% | both eyes 2 times | | | | | | ophthalmic solution | daily. | | | | | + + + +---------+ + + documented as of this encounter Progress Notes Will Gloria MD - 07/18/2019 1121 PDT [facility]: Orthopedic Surgery Progress Note Hospital Day: LOS:Hospital Day: 4 Post-Op Day: 2 Day Post-Op Surgery/Procedures: Procedure(s) (LRB): ORIF IM RODDING FEMUR (Left) SUBJECTIVE Patient Summary: Painful with transfers. No events. Events Overnight: none OBJECTIVE Vital Signs: Vitals: 07/18/19 1106 BP: 136/71 Pulse: 84 Resp: 18 Temp: 36.8 C (98.3 F) Exam: General: Alert, in no apparent distress Head: Normal inspection, no signs of trauma. No facial asymmetry Neck: Normal inspection and ROM Respiratory: No respiratory distress. Normal chest rise and fall. Skin: Color normal, warm and dry Extremities: LLE: 2+ DP. Sensation intact all toes. Fires EHL/FHL/GSC/TA. Dressing c/d/i DATA Lab Results Component Value Date WBC 9.36 07/18/2019 WBC 11.70 (H) 07/16/2019 WBC 11.96 (H) 07/15/2019 HGB 8.0 (L) 07/18/2019 HGB 10.8 (L) 07/16/2019 HGB 13.4 07/15/2019 HCT 22.9 (L) 07/18/2019 HCT 31.3 (L) 07/16/2019 HCT 39.1 07/15/2019 MCV 89.6 07/18/2019 PLT 204 07/18/2019 Lab Results Component Value Date NA 141 07/18/2019 K 3.8 07/18/2019 CL 109 07/18/2019 CO2 25 07/18/2019 Lab Results Component Value Date INR 1.0 07/15/2019 No results found for: CRP No results found for: ESR PROBLEM LIST: Principal Problem: Closed displaced subtrochanteric fracture of left femur, initial encounter Active Problems: History of CVA with residual deficit Essential hypertension ASSESSMENT & PLAN 1. WBAT operative extremity with assistive device 2. He is on Plavix at baseline. Would recommend additional DVT prophylaxis such as Eliquis if indicated. 3. Ancef x24 hours 4. PT OT 5. Follow up in 2 weeks, conchis out, x-rays of the left femur. If they are able to coordi bryant wound check with staple removal and x-rays of the femur closer to home then with I am o steve with him doing the 2-week check elsewhere as long as the x-rays are sent to me. I would then see him at the 8-week postoperative arminda Will Gloria MD 07/18/2019 11:21 Melba Schmidt Chap lain - 07/17/2019 1305 PDTMet with patient per RN request in light of difficulty coping with being immobile. Patient expressing feelings of frustration at the inability to "do anything ". 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 Feels he will be bored in rehab. Had a st roke in 2010 and coped by grit and perseverance. Patient was raised Faith and believes Go d is present and provisional. Draws strength from his own vitality, his cherelle, and the suppo rt of his family (and pets). Supervisor [employer]rote[employer] provided supportive presence, active listening, affirm ed and encouraged expression of frustration, and explored past coping skills and sources of strength. Patient expressed appreciation for visit and by telling his story was able to reaf firm his resilience and ability to cope. Margarito Pineda RN - 07/17/2019 1128 PDTCare Management Follow-Up Readmission Risk: Medium Current Discharge Plan Anticipated Discharge Disposition: longterm facility Expected DC Date: 07/18/2019 Barriers to Discharge: none Steps Taken Toward Discharge: received acceptance for placement at [facility] Next Steps: d/c and transport to [facility] Discharge Transportation Transportation Needs: car Notes: Received call from [facility] - mortgage loan coordinator for [facility], they are accept ing Pt for placement. PT notes, OT notes, Orthopedic progress note and Progress notes faxed to [facility] at [phone]. Electronically signed: Margarito Swartz RN 07/17/2019 11:28 ill Gloria MD - 07/17/2019 1109 PDT [facility]: Orthopedic Surgery Progress Note Hospital Day: LOS:Hospital Day: 3 Post-Op Day: 2 Day Post-Op Surgery/Procedures: Procedure(s) (LRB): ORIF IM RODDING FEMUR (Left) SUBJECTIVE Patient Summary: Doing well. Thigh discomfort. Pain well controlled Events Overnight: none OBJECTIVE Vital Signs: Vitals: 07/17/19 0920 BP: 130/65 Pulse: Resp: Temp: Exam: General: Alert, in no apparent distress Head: Normal inspection, no signs of trauma. No facial asymmetry Neck: Normal inspection and ROM Respiratory: No respiratory distress. Normal chest rise and fall. Skin: Color normal, warm and dry Extremities: LLE: 2+ DP. Sensation intact all toes. Fires EHL/FHL/GSC/TA. Dressing c/d/i DATA Lab Results Component Value Date WBC 11.70 (H) 07/16/2019 WBC 11.96 (H) 07/15/2019 HGB 10.8 (L) 07/16/2019 HGB 13.4 07/15/2019 HCT 31.3 (L) 07/16/2019 HCT 39.1 07/15/2019 MCV 90.7 07/16/2019 PLT 245 07/16/2019 Lab Results Component Value Date NA 140 07/16/2019 K 4.2 07/16/2019 CL 107 07/16/2019 CO2 24 07/16/2019 Lab Results Component Value Date INR 1.0 07/15/2019 No results found for: CRP No results found for: ESR PROBLEM LIST: Principal Problem: Closed displaced subtrochanteric fracture of left femur, initial encounter Active Problems: History of CVA with residual deficit Essential hypertension ASSESSMENT & PLAN 1. WBAT operative extremity with assistive device 2. He is on Plavix at baseline. Would recommend additional DVT prophylaxis such as Eliquis if indicated. 3. Ancef x24 hours 4. PT OT 5. Follow up in 2 weeks, conchis out, x-rays of the left femur. Will Gloria MD 07/17/2019 11:10 Sharita Santana MD - 07/17/2019 0926 PDT [facility] Hospitalist Progress Note Hospital Day: 2 Patient Summary: 74 y/o M with past medical history of HTN, hx of CVA with residual R sided weakness and i mpaired vision, who presented with a ground level fall, and sustained a L sided closed disp laced subtrochanteric fracture of L femur, s/p ORIF on 07/15/[address] Gloria. Awaiting plac ement to swing bed at [facility] Orthopedics recommends continued DVT ppx IMPRESSION/PLAN: Principal Problem: Closed displaced subtrochanteric fracture of left femur, initial encounter Continue with therapies, needs another midnight before discharge to swing bed Active Problems: History of CVA with residual deficit Undergoing therapies, on plavix Essential hypertension Stable, continue with amlodipine Constipation miralax Anemia, normocytic overall down trend noted, query dilution,continue to monitor DVT prophylaxis: lovenox sq and SCDs SUBJECTIVE Patient seen and examined. Expresses a lot of frustration, re his night, lack of mobility, lack of sleep,appears depressed. Spiritual consult ordered.overall stable appearing. No BM s blair admission, miralax will be given by RN today OBJECTIVE Vital Signs: BP 130/65 | Pulse 83 | Temp 36.9 C (98.4 F) (Oral) | Resp 18 | Ht 1.778 m (5' 10") | Wt 84.8 kg (187 lb) | SpO2 98% | BMI 26.83 kg/m Physical Exam: Constitutional: Alert and oriented to person, place, and time. Appears well-developed and w ell-nourished. HEENT: Neck supple, no JVD, non icteric sclera. Cardiovascular: Normal rate, regular rhythm, no murmur Pulmonary/Chest: Effort normal and breath sounds normal. No stridor. No respiratory distres s. no wheezes. no rales. Abdominal: Soft. Bowel sounds are normal. No distension.There is no tenderness. Extremeties/Musculoskeletal: No edema. Neurological: Alert and oriented to person, place, and time. Skin: Skin is warm. No diaphoresis. Psychiatric: dysphoric mood DATA Labs: No results found. Recent Labs 07/16/1943907/15/191923 WBC 11.70* 11.96* HGB 10.8* 13.4 HCT 31.3* 39.1 PLT 245 274 MCV 90.7 89.8 Recent Labs Lab 07/16/1943907/15/191923 NA 140 142 K 4.2 4.4 CL 107 107 CO2 24 26 ANIONGAP 13 13 BUN 20 16 CREA 1.1 1.07 CALCIUM 8.5 9.5 Recent Labs 07/16/1943907/15/191923 GLU 146* 137* No results for input(s): TROPONIN, BNP in the last 72 hours. Recent Labs Lab 07/15/191923 INR 1.0 No results for input(s): IRON, TIBC, PCTSAT, FERRITIN, TSH, [id number], FOLATE in the last 168 hours. No results for input(s): LACTATE, PROCALCITONI, CRP, ESR in the last 168 hours. No results for input(s): AMYLASE, LIPASE in the last 168 hours. No results for input(s): TRIG, CHOL, HDL, LDL in the last 168 hours. No results for input(s): AMMONIA in the last 168 hours. Imaging reviewed and important information summarized in the note PROBLEM LIST Principal Problem: Closed displaced subtrochanteric fracture of left femur, initial encounter Active Problems: History of CVA with residual deficit Essential hypertension I spent over 35 minutes reviewing patient's labs, diagnostic, tests, performing history and examination, discussing plan of care with patient and family if indicated. At least 50% of time was spent in [id number] coordination of care and counseling. All questions were ans wered. All data reviewed. Disposition: Admitted inpatient Code Status: Full Code Sharita Coles MD 07/17/2019 9:26 Portions of this chart may have been created with voice recognition software. Occasional wr gladis-word or "sound-alike" substitutions may have occurred, even after review, due to the inh erent limitations of voice recognition software. Please read the chart carefully and recogni ze, using context, where these substitutions have occurred. Personal communication is reques lito for any clarifications. Margarito Pineda RN - 07/16/2019 1614 PDTCare Management Initial Assessment Readmission Risk: Medium Status Prior to Admission or Illness Arrival From: admitted as an inpatient, home or self-care Lives With: child(olena), adult Living Arrangements: house Caregiver For: no one, unable/limited ability to care for self Patient s Caregiver: child(olena) (specify) Functional Status: previously MOD I with SPC but h/o multiple falls Caregiving Concerns: none Home Accessibility: no concerns Transportation Available: family or friend will provide, agency transportation Able to return to prior living: needs placement Care Management Concerns Readmission Within Last 30 Days: no previous admission in last 30 days PCP: No Physician on file Contact Information Family Contact Information: Name: Ricci Handley Pager: none Fax: none DC Needs Assessment Current Outpt/Agency/Support Groups: none Community Agency Name: none Anticipated Changes Related to Illness: inability to care for self Concerns to be Addressed: discharge planning concerns Services Anticipated at Discharge: longterm facility Equipment Used at Home: none Equipment Needed after Discharge: walker, standard Durable Medical Equipment Provider: Pharmacy/Medication Needs: Transportation Needs: car Initial Plan Anticipated Discharge Disposition: longterm facility Expected DC Date: Steps Taken Toward Discharge: referral sent to [facility] Next Steps: Placement Notes:Pt needing placement and Pt request [facility]. Referral sent and DELMAR duenas follow-up. Pt was independent with ADLs and mobility, has a cane but rarely used it. Pt is on Plavix for anticoagulation. Electronically signed: Margarito Swartz RN 07/16/2019 16:14 Will Schulte MD - 07/16/2019 1303 PDT [facility]: Orthopedic Surgery Progress Note Hospital Day: LOS:Hospital Day: 2 Post-Op Day: 1 Day Post-Op Surgery/Procedures: Procedure(s) (LRB): ORIF IM RODDING FEMUR (Left) SUBJECTIVE Patient Summary: Slow movement with therapy due to right leg Events Overnight: none OBJECTIVE Vital Signs: Vitals: 07/16/19 1211 BP: 121/58 Pulse: 83 Resp: 18 Temp: 36.9 C (98.4 F) Exam: General: Alert, in no apparent distress Head: Normal inspection, no signs of trauma. No facial asymmetry Neck: Normal inspection and ROM Respiratory: No respiratory distress. Normal chest rise and fall. Skin: Color normal, warm and dry Extremities: LLE: 2+ DP. Sensation intact all toes. Fires EHL/FHL/GSC/TA. Dressing c/d/i DATA Lab Results Component Value Date WBC 11.70 (H) 07/16/2019 WBC 11.96 (H) 07/15/2019 HGB 10.8 (L) 07/16/2019 HGB 13.4 07/15/2019 HCT 31.3 (L) 07/16/2019 HCT 39.1 07/15/2019 MCV 90.7 07/16/2019 PLT 245 07/16/2019 Lab Results Component Value Date NA 140 07/16/2019 K 4.2 07/16/2019 CL 107 07/16/2019 CO2 24 07/16/2019 Lab Results Component Value Date INR 1.0 07/15/2019 No results found for: CRP No results found for: ESR PROBLEM LIST: Principal Problem: Closed displaced subtrochanteric fracture of left femur, initial encounter Active Problems: History of CVA with residual deficit Essential hypertension ASSESSMENT & PLAN 1. WBAT operative extremity with assistive device 2. He is on Plavix at baseline. Would recommend additional DVT prophylaxis such as Eliquis if indicated. 3. Ancef x24 hours 4. PT OT 5. Follow up in 2 weeks, conchis out, x-rays of the left femur. Will Gloria MD 07/16/2019 13:03 Greyson Dukes MD - 07/16/2019 0813 PDT [facility]: Hospitalist Progress Note Pt: Constantin Handley AGE/SEX: 74 y.o. male ROOM: 417/417-01 : 1945 PCP: No Physician on file ADMIT DATE: 07/15/2019 TODAY'S DATE: 07/16/2019 Hospital Day/Hospital Course: LOS: 1 day SUBJECTIVE: Patient seen and examined. Complaint of some periodic discomfort but reports that the pain medication he is getting is helping it is reportedly the IV per the patient. I did encourag e him to prior to getting ready to discharge to see with the oral pain medication would be a ble to do for him. No chest pain, SOB, MANUEL. No cough on recumbency. Had no orthopnea or PND. No Abdominal pain, N/V or fever. No dizziness or lightheadedness. Scheduled Medications: amLODIPine 5 mg Oral Daily ceFAZolin 2 g Intravenous Q8H enoxaparin 40 mg Subcutaneous Daily senna 17.2 mg Oral BID timolol maleate 1 drop Right Eye BID Continuous Infusions sodium chloride 0.9% 100 mL/hr at 07/16/19 0031 PRN Medications acetaminophen, hydrALAZINE, HYDROmorphone, ondansetron, ondansetron, oxyCODONE, polyethylen e glycol Allergy: No Known Allergies OBJECTIVE: Vitals: Patient Vitals for the past 24 hrs: BP Temp Temp src Pulse Resp SpO2 Height Weight 07/16/19 0832 118/58 37 C (98.6 F) Oral 82 17 98 % 07/16/19 0338 118/62 36.8 C (98.2 F) Oral 84 18 98 % 07/16/19 0044 120/67 78 16 98 % 07/16/19 0015 127/60 36.8 C (98.2 F) Oral 76 18 99 % 07/16/19 0000 122/59 36.7 C (98 F) Oral 78 18 99 % 1.778 m (5' 10") 84.8 kg (187 lb) 07/15/19 2350 120/58 36.4 C (97.5 F) Temporal 81 17 99 % 07/15/19 2340 112/59 94 21 99 % 07/15/19 2328 102/56 36.5 C (97.7 F) Temporal 98 18 100 % 07/15/19 1839 115/61 36.9 C (98.4 F) Oral 80 16 97 % I&O Detailed Table: Intake/Output Summary (Last 24 hours) at 07/16/2019 0957 Last data filed at 07/16/2019 0708 Gross per 24 hour Intake 2764 ml Output 350 ml Net 2414 ml Patient Vitals for the past 96 hrs: Weight 07/16/19 0000 84.8 kg (187 lb) Hemodynamics Last 24hrs: Physical Examination: Physical Exam Constitutional: He appears well-developed and well-nourished. No distress. Eyes: No scleral icterus. Neck: No JVD present. Cardiovascular: Regular rhythm and normal heart sounds. Pulmonary/Chest: Effort normal and breath sounds normal. No respiratory distress. He has no wheezes. He has no rales. Abdominal: Bowel sounds are normal. He exhibits no distension. There is no tenderness. Ther e is no rebound and no guarding. Musculoskeletal: He exhibits edema and tenderness. Appropriate postop Neurological: He is alert. No cranial nerve deficit. Skin: Skin is warm and dry. He is not diaphoretic. Psychiatric: He has a normal mood and affect. His behavior is normal. Nursing note and vitals reviewed. LABS: Recent Labs Lab 07/16/19 0440 07/15/19 1924 WBC 11.70* 11.96* HGB 10.8* 13.4 HCT 31.3* 39.1 PLT 245 274 NA 140 142 K 4.2 4.4 CL 107 107 CO2 24 26 ANIONGAP 13 13 BUN 20 16 CREA 1.1 1.07 GLU 146* 137* CALCIUM 8.5 9.5 INR -- 1.0 No results for input(s): COLORUA, CLARITYUA, SPECGRAVU, LEUKEST, NITRITEUA, UUROB, URINEPRO TEIN, LABPH, BLOODUA, KETONESUA, BILIRUBINUA, GLUCOSEU, WBCUA, RBCUA, SQUAMEPIUA, BACTERIAUA , MUCUSUA, CRYSTALUA in the last 168 hours. @MICRO@ RADIOLOGY: Fl C-arm Result Date: 07/16/2019 FLUOROSCOPY C ARM CLINICAL INFORMATION: Left femur ORIF- Gamma Nail FINDINGS: Fluoro Time: 201.3 seconds. Number of images: 5 Air Kerma: 24.44 mGy Fluoroscopic assistance for customer success intern al fixation of the left femur. Please refer to surgical notes for details. Fluoroscopic service for procedure. Signed by: Mariaa Dawkins Sadaf Sign Date/Time: 9 12:23 AM PROBLEM LIST Principal Problem: Closed displaced subtrochanteric fracture of left femur, initial encounter Active Problems: History of CVA with residual deficit Essential hypertension ASSESSMENT & PLAN Closed displaced subtrochanteric fracture of left femur, initial encounter (07/15/2019) Assessment: Patient's status post ORIF as per orthopedics. As per their note seems the p atient could resume Plavix. I checked a urine just to ensure no asymptomatic bacteriuria pr esent in the setting of hardware. Therapy recommending longterm facility I discussed this with the patient and his family member patient is not interested in a "prison "b ut they are interested in a swing bed at [facility] it seems. Discussed with case torrey crouch so they could look into this. History of CVA with residual deficit (07/15/2019) Assessment: Resuming Plavix as above. Essential hypertension (07/15/2019) Assessment: Patient on Cozaar and amlodipine at home. Both of which may have some ongoin g lung effects and subsequent control. Blood pressure not markedly elevated currently on 5 mg of amlodipine. Watch blood pressure is may need to replace the remainder of his regimen in the near future as the effect wears off. Greyson Corona MD 07/16/2019 9:57 Greater than 35 minutes spent today overall in coordination of care, seeing and managing angela smith, review of data, coordination with staff, coordination with involved consultants, and including any scheduled multidisciplinary rounding focused on the patient. Dictation software, [employer], used which may contain error for similar sounding words even af ter review. Personal communication requested for any clarification. Portions of this chart may have been copied from previous notes for continuity of care purp ose documented in this enc ounter Plan of Treatment + +--------+ + + | Name | Priori | Associated Diagnoses | Order Schedule | | | ty | | | + +--------+ + + | Oxygen Therapy | Routin | | Until Discontinued | | | e | | until discontinued | | | | | starting 07/15/2019 | + +--------+ + + | POCT Glucose | Routin | | As Needed for 8 | | | e | | Occurrences starting | | | | | 07/16/2019 | + +--------+ + + | CBC no Differential | Routin | | AM Lab Morning Lab | | | e | | for 3 Days starting | | | | | 07/18/2019 until | | | | | 07/20/2019, 1 | | | | | completed | + +--------+ + + | Renal Function Panel | Routin | | AM Lab Morning Lab | | | e | | for 3 Days starting | | | | | 07/18/2019 until | | | | | 07/20/2019, 1 | | | | | completed | + +--------+ + + | CBC with Differential | Routin | Closed displaced | 1 Occurrences | | | e | subtrochanteric | starting 07/18/2019 | | | | fracture of left | until 07/18/2020 | | | | femur, initial | | | | | encounter (HCC) | | | | | Anemia, normocytic | | | | | normochromic | | + +--------+ + + + +--------+ + + | Name | Priori | Associated Diagnoses | Order Schedule | | | ty | | | + +--------+ + + | Ambulatory referral to | Routin | Anemia, normocytic | Ordered: 07/18/2019 | | Gastroenterology | e | normochromic | | + +--------+ + + documented as of this encounter Procedures + +--------+ [...] + + + documented in this encounter Results Renal Function Panel (07/18/2019 4:47 PDT) + [...] | >60Comment: GFR <60: | >60 | [facility] | | | GFR | CHRONIC KIDNEY [...] | | | | | | MDRD IDDC traceable | | | | | | equation.Testing | | | | | | performed at [facility], [address] | | | | | | [facility], | | | | | | [place] [address] | | | | + + + + + + + + | Specimen | + + | Blood | + + + + + + + | Performing | Address | City/State/Zipcode | Phone Number | | Organization | | | | + + + + + | [facility] | [address] | [place] [address] | [phone] | + + + + + CBC no Differential (07/18/2019 4:47 PDT) + + + + [...] [facility] | | | | performed at [facility], [address] | | LABORATORY | | | | [address], | | | | | | [place] [address] | | | | + + + + + + + + | Specimen | + + | Blood | + + + + + + + | Performing | Address | City/State/Zipcode | Phone Number | | Organization | | | | + + + + + | [facility] | [address] | [place] [address] | [phone] | + + + + + Culture, [...] RESULT | Testing performed at | | [facility] | | | | [facility], [address] [facility] | | LABORATORY | | | | [place], [place] | | | | | | [id number]: Testing | | | | | | performed at [facility], [address] | | | | | [address], | | | | | | [place] [address] | | | | + + + + + + + + | Specimen | + + | Urine | + + + + + + + | Performing | Address | City/State/Zipcode | Phone Number | | Organization | | | | + + + + + | [facility] | [address] | [place] [address] | [phone] | + + + + + Urinalysis [...] - 1.030 | [facility] | | | [place], | | | LABORATORY | | | [...] | 1+ (A)Comment: Testing | NONE | [facility] | | | | performed at [facility], [address] | | LABORATORY | | | | [address], | | | | | | [place] [address] | | | | + + + + + + + + | Specimen | + + | Urine | + + + + + + + | Performing | Address | City/State/Zipcode | Phone Number | | Organization | | | | + + + + + | [facility] | [address] | [place] [address] | [phone] | + + + + + CBC no Differential (07/16/2019 4:40 PDT) + + + + + + | Component | Value | Ref Range | Performed | Pathologist | | | | | At | Signature | + + + + + + | WBC | 11.70 (H) | 3.80 - 11.00 | [facility] | | | | | K/uL | LABORATORY | | + + + + + + | RBC | 3.46 (L) | 4.20 - 5.70 | [facility] | | | | | M/uL | LABORATORY | | + + + + + + | Hemoglobin | 10.8 (L) | 13.2 - 17.0 | [facility] | | | | | g/dL | LABORATORY | | + + + + + + | Hematocrit | 31.3 (L) | 39.0 - 50.0 % | [facility] | | | | | | LABORATORY | | + + + + + + | MCV | 90.7 | 80.0 - 100.0 fl | [facility] | | | | | | LABORATORY | | + + + + + + | MCH | 31.3 | 27.0 - 34.0 pg | [facility] | | | | | | LABORATORY | | + + + + + + | MCHC | 34.5 | 32.0 - 35.5 | [facility] | | | | | g/dL | LABORATORY | | + + + + + + | RDW-SD | 43.3 | 37 - 53 fl | [facility] | | | | | | LABORATORY | | + + + + + + | Platelet | 245 | 150 - 400 K/uL | [facility] | | | Count | | | LABORATORY | | + + + + + + | MPV | 7.1Comment: Testing | fl | [facility] | | | | performed at [facility], [address] | | LABORATORY | | | | [facility], | | | | | | [place] [address] | | | | + + + + + + + + | Specimen | + + | Blood | + + + + + + + | Performing | Address | City/State/Zipcode | Phone Number | | Organization | | | | + + + + + | [facility] | [address] | [place] [address] | [phone] | + + + + + Basic Metabolic Panel (07/16/2019 4:40 PDT) + + + + + + [...] | 8.5 | 8.5 - 10.5 | [facility] | | | | | mg/dL | LABORATORY | | + + + + + + | Estimated | >60Comment: GFR <60: | >60 | [facility] | | | GFR | CHRONIC KIDNEY [...] | | | | | | MDRD IDMS traceable | | | | | | equation.Testing | | | | | | performed at [facility], [address] | | | | | | [facility], | | | | | | [place] [address] | | | | + + + + + + + + | Specimen | + + | Blood | + + + + + + + | Performing | Address | City/State/Zipcode | Phone Number | | Organization | | | | + + + + + | [facility] | [address] | [place] [address] | [phone] | + + + + + FL Matthew (07/15/2019 23:03 PDT) + + | Specimen | + + | | + + + + + | Impressions | Performed At | + + + | Fluoroscopic service for procedure. Signed by: Mariza | [facility] | | Christin Leroy Date/Time: 07/16/2019 12:23 AM | | + [...] | | | + +---------+ + + Protime INR (07/15/2019 19:24 PDT) [...] | | | | | performed at [facility] | | | | | | [address];[place], [place] | | | | | | [address] | | | | + + + + + + + + | Specimen | + + | Blood | + + + + + + + | Performing | Address | City/State/Zipcode | Phone Number | | Organization | | | | + + + + + | [facility] | [address] | [place] [address] | [phone] | + + + + + Basic Metabolic Panel (07/15/2019 19:24 PDT) + + + + + + | Component | Value | Ref Range | Performed | Pathologist | | | | | At | Signature | + + + + + + | Na | 142 | 135 - 145 | [facility] | | | | | mmol/L | LABORATORY | | + + + + + + | K | 4.4 | 3.5 - 4.9 | [facility] | | | | | mmol/L | LABORATORY | | + + + + + + | Cl | 107 | 99 - 109 mmol/L | [facility] | | | | | | LABORATORY | | + + + + + + | CO2 | 26 | 23 - 32 mmol/L | [facility] | | | | | | LABORATORY | | + + + + + + | Anion Gap | 13 | 5 - 20 mmol/L | [facility] | | | | | | LABORATORY | | + + + + + + | Glucose | 137 (H) | 65 - 99 mg/dL | [facility] | | | | | | LABORATORY | | + + + + + + | BUN | 16 | 8 - 25 mg/dL | [facility] | | | | | | LABORATORY | | + + + + + + | Creatinine | 1.07 | 0.70 - 1.30 | [facility] | | | | | mg/dL | LABORATORY | | + + + + + + | BUN/Creatin | 15 | | [facility] | | | ine Ratio | | | LABORATORY | | + + + + + + | Calcium | 9.5 | 8.5 - 10.5 | [facility] | | | | | mg/dL | LABORATORY | | + + + + + + | Estimated | >60Comment: GFR <60: | >60 | [facility] | | | GFR | CHRONIC KIDNEY [...] | | | | | | MDRD IDMS traceable | | | | | | equation.Testing | | | | | | performed at [facility];[address] | | | | | | [address];[place], [place] | | | | | | [address] | | | | + + + + + + + + | Specimen | + + | Blood | + + + + + + + | Performing | Address | City/State/Zipcode | Phone Number | | Organization | | | | + + + + + | [facility] | [address] | [place] [address] | [phone] | + + + + + CBC no Differential (07/15/2019 19:24 PDT) + + + + + + | Component | Value | Ref Range | Performed | Pathologist | | | | | At | Signature | + + + + + + | WBC | 11.96 (H) | 3.80 - 11.00 | [facility] | | | | | K/uL | LABORATORY | | + + + + + + | RBC | 4.35 | 4.20 - 5.70 | [facility] | | | | | M/uL | LABORATORY | | + + + + + + | Hemoglobin | 13.4 | 13.2 - 17.0 | [facility] | | | | | g/dL | LABORATORY | | + + + + + + | Hematocrit | 39.1 | 39.0 - 50.0 % | [facility] | | | | | | LABORATORY | | + + + + + + | MCV | 89.8 | 80.0 - 100.0 fl | [facility] | | | | | | LABORATORY | | + + + + + + | MCH | 30.8 | 27.0 - 34.0 pg | [facility] | | | | | | LABORATORY | | + + + + + + | MCHC | 34.3 | 32.0 - 35.5 | [facility] | | | | | g/dL | LABORATORY | | + + + + + + | RDW-SD | 42.9 | 37 - 53 fl | [facility] | | | | | | LABORATORY | | + + + + + + | Platelet | 274 | 150 - 400 K/uL | [facility] | | | Count | | | LABORATORY | | + + + + + + | MPV | 6.7Comment: Testing | fl | [facility] | | | | performed at [facility];[address] | | LABORATORY | | | | [address];[place] | | | | | | [address] | | | | + + + + + + + + | Specimen | + + | Blood | + + + + + + + | Performing | Address | City/State/Zipcode | Phone Number | | Organization | | | | + + + + + | [facility] | [address] | [place] [address] | [phone] | + + + + + XR [...] | | | + +---------+ + + documented in this encounter Visit Diagnoses + + | Diagnosis | + + | Closed displaced subtrochanteric fracture of left femur, initial encounter (HCC) | + + documented in this encounter Admitting Diagnoses + + | Diagnosis | + + | Closed displaced subtrochanteric fracture of left femur, initial encounter (HCC) | + + documented in this encounter Administered Medications + +--------+ +------+------+------+ | Medication Order | MAR | Action | Dose | Rate | Site | | | Action | Date | | | | + +--------+ +------+------+------+ | amLODIPine (NORVASC) tablet 5 | Given | 07/18/20 | 5 mg | | | | mg 5 mg, Oral, DAILY, First dose | | 19 9:00 | | | | | on 07/16/19 at 0900 | | PDT | | | | + +--------+ +------+------+------+ +-------+ +------+---+---+ | Given | 07/17/20 | 5 mg | | | | | 19 9:20 | | | | | | PDT | | | | +-------+ +------+---+---+ | Given | 07/16/20 | 5 mg | | | | | 19 8:48 | | | | | | PDT | | | | +-------+ +------+---+---+ +---+---+ | | | +---+---+ + +-------+ +-------+---+---+ | clopidogrel (PLAVIX) tablet 75 | Given | 07/18/20 | 75 mg | | | | mg 75 mg, Oral, DAILY, First | | 19 9:00 | | | | | dose on e 07/17/19 at 0900 | | PDT | | | | + +-------+ +-------+---+---+ +-------+ +-------+---+---+ | Given | 07/17/20 | 75 mg | | | | | 19 9:20 | | | | | | PDT | | | | +-------+ +-------+---+---+ +---+---+ | | | +---+---+ + +-------+ +-------+---+ + | enoxaparin (LOVENOX) 40 mg/0.4 | Given | 07/18/20 | 40 mg | | Abdomen- | | mL injection 40 mg 40 mg, | | 19 9:00 | | | LLQ | | Subcutaneous, EVERY 24 HOURS | | PDT | | | | | (Daily), First dose on Tue | | | | | | | 07/16/19 at 0900 | | | | | | + +-------+ +-------+---+ + +-------+ +-------+---+ + | Given | 07/17/20 | 40 mg | | Abdomen- | | | 19 9:21 | | | LLQ | | | PDT | | | | +-------+ +-------+---+ + | Given | 07/16/20 | 40 mg | | Abdomen- | | | 19 8:48 | | | LLQ | | | PDT | | | | +-------+ +-------+---+ + +---+---+ | | | +---+---+ + +-------+ +--------+---+---+ | HYDROmorphone (DILAUDID) | Given | 07/16/20 | 0.5 mg | | | | injection 0.25-1 mg 0.25-1 mg, | | 19 3:15 | | | | | Intravenous, EVERY 2 HOURS PRN, | | PDT | | | | | Pain, Starting 07/15/19 at | | | | | | | 1914, Use IV morphine first if | | | | | | | ordered. Slow IV push, not faster | | | | | | | than 0.25 mg/minute. If | | | | | | | ineffective or not tolerated and | | | | | | | unable to take oral opioid - | | | | | | | contact MD., | | | | | | + +-------+ +--------+---+---+ +-------+ +--------+---+---+ | Given | 07/16/20 | 0.5 mg | | | | | 19 0:32 | | | | | | PDT | | | | +-------+ +--------+---+---+ +---+---+ | | | +---+---+ + +-------+ +------+---+---+ | ondansetron (ZOFRAN) injection | Given | 07/15/20 | 4 mg | | | | 4 mg 4 mg, Intravenous, EVERY 6 | | 19 22:46 | | | | | HOURS PRN, Nausea, Vomiting, | | PDT | | | | | Starting 07/15/19 at 1915, | | | | | | | First line agent, | | | | | | + +-------+ +------+---+---+ +---+---+ | | | +---+---+ + +-------+ +------+---+---+ | oxyCODONE (ROXICODONE) tablet | Given | 07/18/20 | 5 mg | | | | 5-15 mg 5-15 mg, Oral, EVERY 3 | | 19 11:19 | | | | | HOURS PRN, Pain, Starting Sun | | PDT | | | | | 07/15/19 at 1914, If ineffective | | | | | | | or not tolerated, contact | | | | | | | prescriber, | | | | | | + +-------+ +------+---+---+ +-------+ +------+---+---+ | Given | 07/18/20 | 5 mg | | | | | 19 3:36 | | | | | | PDT | | | | +-------+ +------+---+---+ | Given | 07/17/20 | 5 mg | | | | | 19 21:15 | | | | | | PDT | | | | +-------+ +------+---+---+ +---+---+ | | | +---+---+ + +-------+ +---------+---+---+ | senna (SENOKOT) tablet 17.2 mg | Given | 07/18/20 | 17.2 mg | | | | 17.2 mg, Oral, 2 TIMES DAILY, | | 19 9:00 | | | | | First dose on 07/15/19 at | | PDT | | | | | 2100, If docusate ineffective or | | | | | | | not ordered., | | | | | | + +-------+ +---------+---+---+ +-------+ +---------+---+---+ | Given | 07/17/20 | 17.2 mg | | | | | 19 21:15 | | | | | | PDT | | | | +-------+ +---------+---+---+ | Given | 07/17/20 | 17.2 mg | | | | | 19 9:20 | | | | | | PDT | | | | +-------+ +---------+---+---+ +---+---+ | | | +---+---+ + +---------+ +---+-------+---+ | sodium chloride 0.9% (NS) | New Bag | 07/18/20 | | 100 | | | infusion at 100 mL/hr, | | 19 3:35 | | mL/hr | | | Intravenous, CONTINUOUS, Starting | | PDT | | | | | 07/15/19 at 1945 | | | | | | + +---------+ +---+-------+---+ +---------+ +---+-------+---+ | New Bag | 07/17/20 | | 100 | | | | 19 17:28 | | mL/hr | | | | PDT | | | | +---------+ +---+-------+---+ | New Bag | 07/16/20 | | 100 | | | | 19 0:31 | | mL/hr | | | | PDT | | | | +---------+ +---+-------+---+ +---+---+ | | | +---+---+ + +-------+ +--------+---+---+ | timolol maleate (TIMOPTIC) | Given | 07/18/20 | 1 drop | | | | 0.25% ophthalmic solution 1 drop | | 19 9:00 | | | | | 1 drop, Right Eye, 2 TIMES | | PDT | | | | | DAILY, First dose on 07/15/19 | | | | | | | at 2100 | | | | | | + +-------+ +--------+---+---+ +-------+ +--------+---+---+ | Given | 07/17/20 | 1 drop | | | | | 19 21:16 | | | | | | PDT | | | | +-------+ +--------+---+---+ | Given | 07/17/20 | 1 drop | | | | | 19 9:22 | | | | | | PDT | | | | +-------+ +--------+---+---+ +---+---+ | | | +---+---+ +---+ | | +---+ + +--------+ +--------+------+ + | Medication Order | MAR | Action | Dose | Rate | Site | | | Action | Date | | | | + +--------+ +--------+------+ + | bupivacaine (PF) (MARCAINE) | Given | 07/15/20 | 30 mLs | | Surgical | | 0.5% injection Prasanna RESENDIZ | | 19 23:19 | | | Site | | 07/15/19 at 2319, Intra-op | | PDT | | | | + +--------+ +--------+------+ + +---+---+ | | | +---+---+ documented in this encounter
--- OUTSIDE RECORDS SUMMARY | ~2019-07-18 | XMS | Encounter Summary ---
Demographics + + + | Address | [address] | | | [place] [address] | + + + | Home Phone | | + + + | Preferred Language | Unknown | + + + | Marital Status | | + + + | Jain Affiliation | [id number] | + + + | Race | Unknown | + + + | Ethnic Group | Unknown | + + + Author + + + | Author | [facility] | | | and [place] | + + + | Organization | [facility] | | | [...] Team Providers + +------+ + | Care Research Spec Name | Role | Phone | + [...] | [facility] | MD Nancy [address] | | | | | IMAGING | [place] | | | | | [phone] | [place] [id number] | | +--------+ + + + + [...]
--- OUTSIDE RECORDS SUMMARY | ~2019-07-18 | XMS | Encounter Summary ---
Demographics + + + | Address | [address] | | | [place] [address] | + + + | Home Phone | | + + + | Preferred Language | Unknown | + + + | Marital Status | | + + + | Jewish Affiliation | 1041 | + + + | Race | Unknown | + + + | Ethnic Group | Unknown | + + + Author + + + | Author | [facility] | | | and [place] | + + + | Organization | [facility] | | | and [...] Team Providers + +------+ + | Care Residential Concierge Name | Role | Phone | + [...] +--------+--------+ + + + + Encounter Details +--------+ + + + + | Date | Type | Department | Care Team | Description | +--------+ + + + + | 07/15/ | Anesthesia | [facility] | Edie Mace, | | | 2019 | Event | [facility] | MD [address] | | | | | OPER[address] | [place] [address] | | | | | [facility] | [phone] | | | | | [place], [place] | | | | | | [address] | | | | | | [phone] | | | +--------+ + + + + Anesthesia Record + + + + + | Procedure Name | Responsible | Anesthesia Start | Anesthesia Stop Time | | | Anesthesiologist | Time | | + + + + + | MORALES FARFAN | Edie Mace MD | 07/15/192119 | 07/15/192328 | | FEMUR (Left ) | | | | + + + + + +----+---+ + + | Da | T | Event | Comment | | te | i | | | | | m | | | | | e | | | +----+---+ + + | 10 | 2 | An Checkout | Pre-use anesthesia machine/equipment checkout. | | /2 | 1 | | | | 7/ | 2 | | | | 20 | 0 | | | | 19 | | | | +----+---+ + + | | 2 | An Start | Reassessment prior to anesthesia induction/procedure. | | | 1 | | | | | 2 | | | | | 0 | | | +----+---+ + + | | 2 | An | | | | 1 | Induction | | | | 2 | | | | | 6 | | | +----+---+ + + | | 2 | An | | | | 1 | Intubation | | | | 2 | | | | | 7 | | | +----+---+ + + | | 2 | First | | | | 1 | Inc/Proc St | | | | 4 | | | | | 9 | | | +----+---+ + + | | 2 | Extubation/ | | | | 3 | Airway LDA | | | | 1 | Removal | | | | 8 | | | +----+---+ + + | | 2 | an stop | | | | 3 | data | | | | 2 | | | | | 0 | | | +----+---+ + + | | 2 | An Stop | Patient handed off to recovery nurse. | | | 2 | | | | | 9 | | | +----+---+ + + +------+ | Meds | +------+ + + + | Name | Total | + + + | ceFAZolin in dextrose IVPB 2 | 2 g | | g/100 mL | | + + + | fentaNYL | 100 mcg | + + + | lidocaine 2% | 60 mg | + + + | propofol | 140 mg | + + + | rocuronium | 50 mg | + + + | succinylcholine | 100 mg | + + + | dexamethasone | 4 mg | + + + | ePHEDrine | 30 mg | + + + | phenylephrine | 200 mcg | + + + | neostigmine | 4 mg | + + + | glycopyrrolate | 0.8 mg | + + + | ondansetron (ZOFRAN) injection 4 | 4 mg | | mg | | + + + | Plasmalyte | 1,700 mL | + + + + + | Name | + + | N2O Flow Rate (L/Min) | + + | O2 Flow Rate (L/Min) | + + | Insp O2 | + + | Exp N2O | + + | Exp SEV | + + | Air Flow Rate (L/Min) | + + + + | No blood administrations on file. | + + +--------+ + + + | Type | Details | Placement | Removal | +--------+ + + + | Periph | 07/15/19; 1600; yes; Right; | 07/15/19 1600 by | | | eral | Antecubital; 20 gauge | Juanita Quintana, | | | IV | | RN | | +--------+ + + + | Periph | 07/15/19; 2029; Left; Forearm; | 07/15/192029 by | | | eral | [id number] catheter system; | Juanita Quintana, | | | IV | 20 gauge | RN | | +--------+ + + + | Wound | 07/15/19; 2305; Incision; Left; | 07/15/192305 by | | | | hip | Monique C | | | | | Ernestina RN | | +--------+ + + + | Wound | 07/15/19; 2305; Incision; Left; | 07/15/192305 by | | | | leg | Monique C | | | | | YARELI Do | | +--------+ + + + | Airway | Placement Date: 07/15/19; | 07/15/192126 by | 07/15/192317 by | | | Placement Time: 2126 (created via | Edie Mace MD | Edie Mace MD | | | procedure documentation); Mask | | | | | Ventilation: EZ; Airway Grade: 1; | | | | | Successful Technique: Mac; | | | | | Laryngoscope Blade Size: 3; | | | | | Attempts: 1; Airway Type: | | | | | endotracheal; Size: 8; Airway | | | | | Tube Secured At: 23; Trauma: | | | | | none; Other Equipment: stylette; | | | | | Placement Check: exhaled CO2 | | | | | detection device, bilateral chest | | | | | rise; Removal Date: 07/15/19; | | | | | Removal Time: 8 | | | +--------+ + + + documented in this encounter Social History + +-------+ +--------+------+ | Tobacco [...] Not on filedocumented as of this encounter Results Airway (07/15/2019 21:51 PDT) + + + [...] MD - 07/15/2019 2151 PDT Anesthesia Airway [id number]/27/2019 | | 21:27Preprocedure check: patient identified, oxygen, [...] and carbon | | dioxide detectionPerforming provider: Bryan Mayen see intraoperative grid | | for any [...] any additional medication documentation. | + + documented in this encounter Visit Diagnoses Not on filedocumented in this encounter Administered Medications + +--------+ +------+------+------+ | Medication Order | MAR | Action | Dose | Rate | Site | | | Action | Date | | | | + +--------+ +------+------+------+ | ondansetron (ZOFRAN) injection | Given | [...] | | | | | + +--------+ +------+------+------+ +---+---+ | | | +---+---+ +---+ | | +---+ + +---------+ +------+------+------+ | Medication Order | MAR | Action | Dose | Rate | Site | | | Action | Date | | | | + +---------+ +------+------+------+ | balanced electrolytes in water | New Bag | 07/15/20 | | | | | (PLASMALYTE-148/NORMOSOL-R) | | 19 22:45 | | | | | infusion Intravenous, CONTINUOUS | | PDT | | | | | PRN, Starting 07/15/19 at | | | | | | | 2122, Anesthesia Intra-op | | | | | | + +---------+ +------+------+------+ +---------+ +---+---+---+ | New Bag | 07/15/20 | | | | | | 19 21:22 | | | | | | PDT | | | | +---------+ +---+---+---+ +---+---+ | | | +---+---+ + +-------+ +-----+---+---+ | ceFAZolin in dextrose (ANCEF) | Given | 07/15/20 | 2 g | | | | IVPB Intravenous, Administer | | 19 21:39 | | | | | over 30 Minutes, PRN, Starting | | PDT | | | | | 07/15/19 at 2139, Anesthesia | | | | | | | Intra-op | | | | | | + +-------+ +-----+---+---+ +---+---+ | | | +---+---+ + +-------+ +------+---+---+ | dexamethasone (DECADRON) 4 | Given | 07/15/20 | 4 mg | | | | mg/mL injection Intravenous, | | 19 22:46 | | | | | PRN, Starting 07/15/19 at | | PDT | | | | | 2246, Anesthesia Intra-op | | | | | | + +-------+ +------+---+---+ +---+---+ | | | +---+---+ + +-------+ +-------+---+---+ | ePHEDrine in saline 5 mg/mL IV | Given | 07/15/20 | 10 mg | | | | syringe Intravenous, PRN, | | 19 22:44 | | | | | Starting 07/15/19 at 2141, | | PDT | | | | | Anesthesia Intra-op | | | | | | + +-------+ +-------+---+---+ +-------+ +-------+---+---+ | Given | 07/15/20 | 20 mg | | | | | 19 21:41 | | | | | | PDT | | | | +-------+ +-------+---+---+ +---+---+ | | | +---+---+ + +-------+ +--------+---+---+ | fentaNYL (PF) injection | Given | 07/15/20 | 50 mcg | | | | Intravenous, PRN, Starting Sun | | 19 21:26 | | | | | 07/15/19 at 2120, Anesthesia | | PDT | | | | | Intra-op | | | | | | + +-------+ +--------+---+---+ +-------+ +--------+---+---+ | Given | 07/15/20 | 50 mcg | | | | | 19 21:20 | | | | | | PDT | | | | +-------+ +--------+---+---+ +---+---+ | | | +---+---+ + +-------+ +--------+---+---+ | glycopyrrolate (ROBINUL) | Given | 07/15/20 | 0.8 mg | | | | injection Intravenous, PRN, | | 19 23:07 | | | | | Starting 07/15/19 at 2307, | | PDT | | | | | Anesthesia Intra-op | | | | | | + +-------+ +--------+---+---+ +---+---+ | | | +---+---+ + +-------+ +-------+---+---+ | lidocaine (PF) 2% injection | Given | 07/15/20 | 60 mg | | | | Intravenous, PRN, Starting Sun | | 21:26 | | | | | 07/15/19 at 2126, Anesthesia | | PDT | | | | | Intra-op | | | | | | + +-------+ +-------+---+---+ +---+---+ | | | +---+---+ + +-------+ +------+---+---+ | neostigmine (BLOXIVERZ) 1 mg/mL | Given | 07/15/20 | 4 mg | | | | injection Intravenous, PRN, | | 19 23:07 | | | | | Starting 07/15/19 at 2307, | | PDT | | | | | Anesthesia Intra-op | | | | | | + +-------+ +------+---+---+ +---+---+ | | | +---+---+ + +-------+ +---------+---+---+ | phenylephrine (EDDIE-SYNEPHRINE, | Given | 07/15/20 | 100 mcg | | | | VAZCULEP) 10 mg per mL injection | | 19 22:56 | | | | | Intravenous, PRN, Starting Sun | | PDT | | | | | 07/15/19 at 2140, Anesthesia | | | | | | | Intra-op | | | | | | + +-------+ +---------+---+---+ +-------+ +---------+---+---+ | Given | 07/15/20 | 100 mcg | | | | | 19 21:40 | | | | | | PDT | | | | +-------+ +---------+---+---+ +---+---+ | | | +---+---+ + +-------+ +-------+---+---+ | propofol (DIPRIVAN) injection | Given | 07/15/20 | 20 mg | | | | Intravenous, PRN, Starting Sun | | 19 23:10 | | | | | 07/15/19 at 2126, Anesthesia | | PDT | | | | | Intra-op | | | | | | + +-------+ +-------+---+---+ +-------+ +--------+---+---+ | Given | 07/15/20 | 120 mg | | | | | 19 21:26 | | | | | | PDT | | | | +-------+ +--------+---+---+ +---+---+ | | | +---+---+ + +-------+ +-------+---+---+ | rocuronium (ZEMURON) injection | Given | 07/15/20 | 20 mg | | | | Intravenous, PRN, Starting Sun | | 19 22:32 | | | | | 07/15/19 at 2135, Anesthesia | | PDT | | | | | Intra-op | | | | | | + +-------+ +-------+---+---+ +-------+ +-------+---+---+ | Given | 07/15/20 | 30 mg | | | | | 19 21:35 | | | | | | PDT | | | | +-------+ +-------+---+---+ +---+---+ | | | +---+---+ + +-------+ +--------+---+---+ | succinylcholine (ANECTINE) | Given | 07/15/20 | 100 mg | | | | injection Intravenous, PRN, | | 19 21:26 | | | | | Starting 07/15/19 at 2126, | | PDT | | | | | Anesthesia Intra-op | | | | | | + +-------+ +--------+---+---+ +---+---+ | | | +---+---+ documented in this encounter"
--- OUTSIDE RECORDS SUMMARY | ~2019-07-18 | XMS | Encounter Summary ---
Demographics + + + | Address | [address] | | | [place] [address] | + + + | Home Phone | | + + + | Preferred Language | Unknown | + + + | Marital Status | | + + + | Yarsanism Affiliation | 1041 | + + + | Race | Unknown | + + + | Ethnic Group | Unknown | + + + Author + + + | Author | [facility] | | | and [place] | + + + | Organization | [facility] | | | and [place] | + + + | Address | Unknown | + + + | Phone | Unavailable | + + + Support + + +---------+ + | Name | Relationship | Address | Phone | + + +---------+ + | JIMBORICCI | ECON | Unknown | | + + +---------+ + Care Team Providers + +------+ + | Care Brand Advocate Name | Role | Phone | + +------+ + | No, Physician | PCP | Unavailable | + +------+ + Reason for Referral Evaluate & Treat (Routine) + + + + + + + | Status | Reason | Specialty | Diagnoses / | Referred By | Referred To | | | | | Procedures | Contact | Contact | + + + + + + + | Pending | Specialty | Gastroenterol | Diagnoses | Sanket, | | | Review | Services | ogbob | Anemia, | Sharita, | | | | Required | | normocytic | MD [address] | | | | | | normochromic | [address] | | | | | | | [facility] | | | | | | | [address] | | | | | | | Phone: | | | | | | | [phone] | | | | | | | Fax: | | | | | | | [phone] | | + + + + + + + Reason for Visit Auth/Cert +--------+--------+ + [...] + + | 07/15/ | Hospital | [facility] | Jose Martin Paulino MD | Closed displaced | | 2019 - | Encounter | [facility] [address] | [address] | subtrochanteric | | | | [address] | [place] [address] | fracture of left | | 07/18/ | | [place], [place] | [phone] | femur, initial | | 2019 | | [address] | | encounter ([facility]) | | | | [phone] | Greyson Corona, | (Primary Dx); Closed | | | | | MD [address] | displaced | | | | | [place] [address] | subtrochanteric | | | | | [phone] | fracture of left | | | | | | femur, initial | | | | | Sharita [place], | encounter ([facility]); | | | | | MD [address] | History of CVA with | | | | | [place] [address] | residual deficit; | | | | | [phone] | Essential | | | | | | hypertension; | | | | | | Anemia, normocytic | | | | | | normochromic | +--------+ + + + + Social [...] documented in this encounter Discharge Summaries Sharita [place] MD - 07/18/2019 1107 PDT [facility] Service: Hospitalist Discharge Summary Date of Admission: [...] Gloria. [facility] Orthopedics recommends continued DVT ppx. This [...] hope you do well in rehab. We h ave found you to have normocytic anemia during [...] bed. I will also order referral for filter press pumper sooner related you are going to be [...] warm. No diaphoresis. Psychiatric: dysphoric mood Disposition: [facility] bed Condition: stable and improved Code Status: Full Code Follow up: Will Gloria MD [facility] [address] In [address] Jonas your PCP GI in [place] Discharge Medications New Medications Details enoxaparin 40 [...] have found you to have normocytic anemia durin g this admission. Your hemoglobin is trending down [...] be sent through Care Everywhere.Enoxaparin inje ction (Cuban)Famotidine tablets or gelcaps (Cuban)Oxycodone tablets or capsules (Cuban )documented in this encounter Medications at Time of Discharge + + + +---------+ + + | Medication | Sig | Dispensed | Refills | Start | End Date | | | | | | Date | | + + + +---------+ + + | amLODIPine | Take 1 tablet by | 30 | 0 | 07/18/ | | | (NORVASC) 5 mg | [...] tablet by | 60 | 0 | 07/18/20 | | | (PEPCID) 20 mg | mouth 2 times daily. | tablet | | 19 | | | tablet | | | | | | + + + +---------+ + + | oxyCODONE | Take 1 tablet by | 10 | 0 | 07/18/20 | | | (ROXICODONE) 5 mg | [...] Will Gloria MD - 07/18/2019 1121 PDT [facility] Service: Orthopedic Surgery Progress Note Hospital Day: [...] postoperative arminda Will Gloria MD 07/18/2019 11:21 elba Gregory Chap lain - 07/17/2019 1305 PDTMet with patient per RN request in light of difficulty coping with being immobile. Patient expressing feelings of frustration at the inability to "do anything ". 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 Feels he will be bored in rehab. Had a st roke in 2010 and coped by grit and perseverance. Patient was raised Mormon and believes Go d is present and provisional. Draws strength from his own vitality, his cherelle, and the suppo rt of his family (and pets). 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 Patient expressed appreciation for visit and by telling his story was able to reaf firm his resilience and ability to cope. Margarito Pineda RN - 07/17/2019 1128 PDTCare Management Follow-Up Readmission Risk: Medium Current Discharge Plan Anticipated Discharge Disposition: senior living facility Expected DC Date: 07/18/2019 Barriers to Discharge: none Steps Taken Toward Discharge: received acceptance for placement at [facility] Swing Bed Next Steps: d/c and transport to [facility] Discharge Transportation Transportation Needs: car Notes: Received call from [facility] - account coordinator for [facility], they are accept ing Pt for placement. PT notes, OT notes, Orthopedic progress note and Progress notes faxed to [facility] at [phone]. Electronically signed: Margarito Swartz RN 07/17/2019 11:28 Will Schulte MD - 07/17/2019 1109 PDT [facility] Service: Orthopedic Surgery Progress Note Hospital Day: [...] Sharita Santana MD - 07/17/2019 0926 PDT [facility] Adult Hospitalist Progress Note Hospital Day: 2 [...] Awaiting plac ement to swing bed at [facility] recommends continued DVT ppx IMPRESSION/PLAN: Principal [...] for input(s): IRON, TIBC, PCTSAT, FERRITIN, TSH, AEVOATYR69, FOLATE in the last 168 hours. No [...] least 50% of time was spent in jrdy-jz-ibcz coordination of care and counseling. All questions [...] discharge planning concerns Services Anticipated at Discharge: senior living facility Equipment Used at Home: none Equipment Needed after Discharge: walker, standard Durable Medical Equipment Provider: Pharmacy/Medication Needs: Transportation Needs: car Initial Plan Anticipated Discharge Disposition: senior living facility Expected DC Date: Steps Taken Toward Discharge: referral sent to [facility] Next Steps: Placement Notes:Pt needing placement and Pt request [facility]. Referral sent and DELMAR duenas follow-up. Pt was independent with ADLs and mobility, has a cane but rarely used it. Pt is on Plavix for anticoagulation. Electronically signed: Margarito Swartz RN 07/16/2019 16:14 Will Schulte MD - 07/16/2019 1303 PDT [facility] Service: Orthopedic Surgery Progress Note Hospital Day: [...] Greyson Dukes MD - 07/16/2019 0813 PDT [facility] Service: Hospitalist Progress Note Pt: Constantin Handley AGE/SEX: 74 y.o. male ROOM: [facility]- : 1945 PCP: No Physician on file [...] Air Kerma: 24.44 mGy Fluoroscopic assistance for merchandising intern al fixation of the left femur. Please refer to surgical notes for details. Fluoroscopic service for procedure. Signed by: Mariaa Dawkins, Christin Sign Date/Time: 9 12:23 AM PROBLEM LIST [...] in the setting of hardware. Therapy recommending senior living facility I discussed this with the patient and his family member patient is not interested in a "longterm "b ut they are interested in a swing bed at [facility] it seems. Discussed with case torrey crouch [...] rounding focused on the patient. Dictation software, Privepass, used which may contain error for similar [...] | | | | | performed at [facility], [address] | | | | | | [facility] [address], | | | | | | [place] [address] | | | | + + + + + + + + | Specimen | + + | Blood | + + + + + + + | Performing | Address | City/State/Zipcode | Phone Number | | Organization | | | | + + + + + | [facility] | [address] | [place] [address] | [phone] | + + + + + CBC [...] MPV | 7.0Comment: Testing | fl | [facility] | | | | performed at [facility], [address] | | LABORATORY | | | | [address], | | | | | | [place] [address] | | | | + + + + + + + + | Specimen | + + | Blood | + + + + + + + | Performing | Address | City/State/Zipcode | Phone Number | | Organization | | | | + + + + + | [facility] | [address] | [place] [address] | [phone] | + + + + + Culture, [...] RESULT | Testing performed at | | [facility] | | | | [facility], [address] [facility] | | LABORATORY | | | | [place] | | | | | | [address]Ntucsqt: Testing | | | | | | performed at [facility], [address] | | | | | | [facility] [address], | | | | | | [place] [address] | | | | + + + + + + + + | Specimen | + + | Urine | + + + + + + + | Performing | Address | City/State/Zipcode | Phone Number | | Organization | | | | + + + + + | [facility] | [address] | [place] [address] | [phone] | + + + + + Urinalysis [...] - 1.030 | [facility] | | | Energy, | | | LABORATORY | | | [...] | 1+ (A)Comment: Testing | NONE | [facility] | | | | performed at [facility], [address] | | LABORATORY | | | | [address], | | | | | | [place] [address] | | | | + + + + + + + + | Specimen | + + | Urine | + + + + + + + | Performing | Address | City/State/Zipcode | Phone Number | | Organization | | | | + + + + + | [facility] | [address] | [place] [address] | [phone] | + + + + + CBC no Differential (07/16/2019 4:40 PDT) + + + + + + | Component | Value | Ref Range | Performed | Pathologist | | | | | At | Signature | + + + + + + | WBC | 11.70 (H) | 3.80 - 11.00 | [facility] | | | | | K/uL | [...] [facility] | | | | performed at [facility], [address] | | LABORATORY | | | | [address], | | | | | | [place] [address] | | | | + + + + + + + + | Specimen | + + | Blood | + + + + + + + | Performing | Address | City/State/Zipcode | Phone Number | | Organization | | | | + + + + + | [facility] | [address] [facility] [address] [facility] | [place] [address] | [phone] | + + + + + Basic [...] | >60Comment: GFR <60: | >60 | [facility] | | | GFR | CHRONIC KIDNEY [...] | | | | | performed at [facility], [address] | | | | | | [facility], | | | | | | [place] [address] | | | | + + + + + + + + | Specimen | + + | Blood | + + + + + + + | Performing | Address | City/State/Zipcode | Phone Number | | Organization | | | | + + + + + | [facility] | [address] | [place] [address] | [phone] | + + + + + PAOLA Castro (07/15/2019 23:03 PDT) + + | Specimen | + + | | + + + + + | Impressions | Performed At | + + + | Fluoroscopic service for procedure. Signed by: Mariza, | [facility] | | Christin Leroy [...] | | | | | performed at [facility] | | | | | | [facility];[place] | | | | | | [address] | | | | + + + + + + + + | Specimen | + + | Blood | + + + + + + + | Performing | Address | City/State/Zipcode | Phone Number | | Organization | | | | + + + + + | [facility] | [address] | [place] [address] | [phone] | + + + + + Basic [...] | >60Comment: GFR <60: | >60 | [facility] | | | GFR | CHRONIC KIDNEY [...] | | | | | performed at [facility];[address] | | | | | | [address];[place], [place] | | | | | | [address] | | | | + + + + + + + + | Specimen | + + | Blood | + + + + + + + | Performing | Address | City/State/Zipcode | Phone Number | | Organization | | | | + + + + + | [facility] | [address] | [place] [address] | [phone] | + + + + + CBC [...] MPV | 6.7Comment: Testing | fl | [facility] | | | | performed at [facility];[address] | | LABORATORY | | | | [address];[place] | | | | | | [address] | | | | + + + + + + + + | Specimen | + + | Blood | + + + + + + + | Performing | Address | City/State/Zipcode | Phone Number | | Organization | | | | + + + + + | [facility] | [address] | [place] [address] | [phone] | + + + + + XR [...] fracture of left femur, initial encounter (HCC) - | | Primary | + + | History of CVA with residual deficit | + + | Essential hypertension Unspecified essential hypertension | + + | Anemia, normocytic normochromic Anemia, unspecified | + + documented in this encounter [...] | | | | | dose on Tue07/17/19 at 0900 | | PDT | | [...] | oxyCODONE (ROXICODONE) tablet | Given | 10/30/20 | 5 mg | | | | [...] +---+---+ +---+ | | +---+ + +---------+ +------+-------+------+ | Medication Order | MAR | Action | Dose | Rate | Site | | | Action | Date | | | | + +---------+ +------+-------+------+ | ceFAZolin in dextrose (ANCEF) | New Bag | 07/16/20 | 2 g | 200 | | | IVPB 2 g 2 g, Intravenous, | | 19 21:21 | | mL/hr | | | Administer over 30 Minutes, EVERY | | PDT | | | | | 8 HOURS INTERVAL, First dose on | | | | | | | 07/16/19 at 0530, For 3 | | | | | | | doses, Keep in refrigerator., | | | | | | | Pre-op, Indications: Surgical | | | | | | | Prophylaxis | | | | | | + +---------+ +------+-------+------+ +---------+ +-----+-------+---+ | New Bag | 10//20 | 2 g | 200 | | | | 19 14:54 | | mL/hr | | | | PDT | | | | +---------+ +-----+-------+---+ | New Bag | 10/20 | 2 g | 200 | | | | 19 5:44 | | mL/hr | | | | PDT | | | | +---------+ +-----+-------+---+ +---+---+ | | | +---+---+ documented in this encounter
[~2019-07-18 10:15] MED LIST: COZAAR100 MG PO; TIMOLOL MALEATE5 M4 OU; ULTRAM50 MG PO
--- NOTE | 2019-07-18 15:15 | NUR ---
PT TO FLOOR WITH TRANSFER IN WHEELCHAIR. ABLE TO PIVOT AND SIDE STEP WITH 2 PA AND FWW. ABLE TO ANSWER MOST QUESTIONS. HAS HAD A STOKE WITH RIGHT SIDED WEAKNESS. HOLLI HOSE IN PLACE, ROLLED UP TO ASSESS ABRASION ON RIGHT MAK.
[2019-07-18] MEDS ORDERED: PLAVIX75 MG PO (16:39)
[2019-07-18] MEDS ORDERED: NORVASC10 MG PO (17:05)
--- NOTE | 2019-07-18 17:06 | NUR ---
Medications reconciled using pharmacy records and patient's home med list. Patient has eye drops in his Pyxis cubby that he will be using while inpatient. Please assure that they are returned to him upon discharge
--- NOTE | 2019-07-18 18:31 | NUR ---
PATIENT SITTING UP IN CHAIR. FAMILY IN ROOM. I&O DONE. PATIENT DID NOT VOID DURING THIS PERIOD. RN NOTIFIED. ENSURE GIVEN. CALL LIGHT WITHIN REACH. NO OTHER NEEDS AT THIS TIME
--- NOTE | 2019-07-18 18:41 | NUR ---
PT SITTING UP IN CHAIR. DENIES NEEDS OR CONCERNS. ATE MOST OF DINNER.
--- NOTE | 2019-07-18 20:09 | NUR ---
up to chair with 2 pa fww, weak R leg
--- NOTE | 2019-07-18 22:40 | NUR ---
PATIENT WAS SETTING UP IN THE BIG CHAIR IN HIS ROOM. IS IN THE ROOM WITH HIM, FRESH WATER WAS GIVEN AND CALL LIGHT IN REACH,VITALS WERE TAKEN , PATIENT WAS HELPED BACK TO BED . 2 PA.
--- NOTE | 2019-07-19 00:17 | NUR ---
resting, eyes closed, continues on swing bed status, on room air, call light at bedside, high fall risk precautions in place
--- NOTE | 2019-07-19 01:41 | NUR ---
PT ON SWING BED STATUS, RESTING, EYES CLOSED, NO RESP DISTRESS. CALL LIGHT AND FLUIDS AT BEDSIDE
--- NOTE | 2019-07-19 03:24 | NUR ---
Resting, eyes closed, no resp distress, uses urinal, voiding light danial colored urine. Tolerating liquids well, call light at bedside.
--- NOTE | 2019-07-19 04:11 | NUR ---
Pt has slept most of this shift. on room air, no c./o pain L hip. 3 dressings over old incision site inplace, Weak L leg. Has chronic R sided deficit from previous stroke. 2-3 PA/FWW, walked from chair to bed, tolerated fair, gets SOB with exertion. Tolerating liquids w/o problems. call light at bedside. Voiding small amounts light danial colored urine using urinal. Uses light appropriately. Continues on swing bed/Transitional care status. High fall precautions in place, cooperative, alert, oriented
--- NOTE | 2019-07-19 07:23 | NUR ---
0700: Report recieved from Carmen DOWNS. Pt sleeping at this time.
--- NOTE | 2019-07-19 07:58 | NUR ---
PT VERY DROWSY AT THIS TIME, HE AWAKES TO VOICE AND ANSWERS QUESTIONS AND QUICKLY FALLS BACK TO SLEEP. CALL MEZA WITHIN REACH.
--- NOTE | 2019-07-19 08:57 | NUR ---
AWARE OF LABS.
--- NOTE | 2019-07-19 10:20 | NUR ---
PT RESTING IN HIS CHAIR WITH NO COMPLAINTS AT THIS TIME. CALL MEZA WITHIN REACH.
--- NOTE | 2019-07-19 10:34 | NUR ---
MDT completed. Will begin therapy PT and OT today. Pt. will a walker.
--- NOTE | 2019-07-19 11:55 | NUR ---
Pt resting in his chair with a visitor in his room speaking with him.
--- NOTE | 2019-07-19 13:49 | NUR ---
PT RESTING IN HIS BED AND IS SPEAKING WITH THIS VISITOR. HE DENIES ANY PROBLEMS OTHER THAN FEELING TIRED. CALL MEZA WITHIN REACH.
--- NOTE | 2019-07-19 14:57 | NUR ---
Pt resting in his bed with no complaints at this time.
--- NOTE | 2019-07-19 16:18 | NUR ---
Pt denies any pain or new problems at this time.
[2019-07-19] MEDS ORDERED: SYSTANE ULTRA 010 ML OU (16:56)
[2019-07-19] MEDS ORDERED: OCUFLOX5 ML OD (17:01)
--- NOTE | 2019-07-19 17:03 | NUR ---
MED REC COMPLETE
--- NOTE | 2019-07-19 22:46 | NUR ---
resting, no resp distress or s/sx pain, call light at bedise, high risk fall precautions in place, call light at hands reach
--- NOTE | 2019-07-20 02:03 | NUR ---
Resting, no distress, on room air, hob elevated, using urinal small amounts of urine. Call light at bedside, high risk fall precautions in place, eye drops not given as per pt requests earlier.
--- NOTE | 2019-07-20 04:36 | NUR ---
Resting, eyes closed, no distress, call light at bedside, high fall risk precautions inplace
--- NOTE | 2019-07-20 05:21 | NUR ---
PT HAS SLEPT OFF AND ON THIS SHIFT, VOIDING SMALL AMOUNTS OF LIGHT VERONICA COLORED URINE. L INCISON X3 SITES COVERED EDEMA TO AREA. AND TO ANKLES AND FEET L SIDED. 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 TOLERATED WELL. GETS EYE DROPS TO R SIDED Q4H WHEN AWAKE, TOLERATING DIET AND FLUIDS WELL, HAS DENIES C/O PAIN. CALL LIGHT AT BEDSIDE
--- NOTE | 2019-07-20 07:32 | NUR ---
0705: Report received from Carmen DOWNS. Pt sleeping at this time. Call henning within reach.
--- NOTE | 2019-07-20 08:48 | NUR ---
PT RESTING IN BED WATCHING TV. PT DID NOT EAT BREAKFAST AND STATES THAT HE NEVER DOES. HE DENIES ANY PAIN OR NEW PROBLEMS. HIS DRESSINGS REMAINS INTACT WITH NO S/S OF INFECTION NOTED. PT DECLINES TO GET UP TO THE CHAIR AT THIS TIME BUT STATES HE WILL GET UP AFTER A WHILE. PT STATES HE DID NOT SLEEP WELL, BUT THAT IS ALSO NORMAL FOR HIM. CALL MEZA WITHIN REACH. FALL PRECAUTIONS REINFORCED WHICH HE STATES UNDERSTANDING.
--- NOTE | 2019-07-20 09:01 | NUR ---
PATIENT RESTING IN BED. VITAL SIGNS AND I&O DONE. PATIENT REFUSED TO ORDER BREAKFAST. CALL LIGHT WITHIN REACH. NO OTHER NEEDS AT THIS TIME
--- NOTE | 2019-07-20 10:10 | NUR ---
Pt working with physical therapy at this time.
--- NOTE | 2019-07-20 10:54 | NUR ---
PT JUST FINISHED WORKING WITH OT AND HE STATES HIS PAIN IS NOW A 3-4/10 AND HE WAS MEDICATED ORDERED. PT NOW GETTING READY FOR A SHOWER.
--- NOTE | 2019-07-20 11:29 | NUR ---
Dressing remain intact and dry following his shower. Pt now resting in his chair and he denies any pain.
--- NOTE | 2019-07-20 11:33 | NUR ---
PATIENT SITTING UP IN CHAIR. RN IN ROOM. LINENS CHANGED. PATIENT TRANSFERRED TO SHOWER CHAIR. PATIENT USES WALKER AND GATE BELT. THREE PERSON ASSISTING. PATIENT TAKES A SHOWER. ONE PERSON ASSISTING. PATIENT BACKS TO CHAIR. CALL LIGHT WITHIN REACH. NO OTHER NEEDS AT THIS TIME
--- NOTE | 2019-07-20 13:23 | NUR ---
PATIENT SITTING UP IN CHAIR. I&O DONE. CALL LIGHT WITHIN REACH. NO OTHER NEEDS AT THIS TIME
--- NOTE | 2019-07-20 14:00 | NUR ---
Pt sitting in his chair and is watching tv and he denies any pain or problems. Call henning remains within reach.
--- NOTE | 2019-07-20 14:35 | NUR ---
PT URINE OUTPUT REMAINS LOW. PT ENCOUARGED TO INCREASE HIS PO FLUID INTAKE WHICH HAS ALSO BEEN LOW. DAWIT STATES HE NORMALY DOES NOT DRINK MUCH OR VOID MUCH. DR WHITLOCK NOTIFIED OF HIS URINE OUTPUT.
--- NOTE | 2019-07-20 15:17 | NUR ---
PT SITTING IN HIS CHAIR DOING EXERCISES WITH HIS LEGS. HE DENIES PAIN AT THIS TIME. PT DRANK SOME ADDITIONAL WATER AND HAS RECENTLY VOIDED.
--- NOTE | 2019-07-20 15:29 | NUR ---
Attempted to speak with pt, he was in the shower. Nurses report he is a two person assist.
--- NOTE | 2019-07-20 17:23 | NUR ---
PATIENT SITTING UP IN CHAIR. IN ROOM. I&O DONE. WATER GIVEN. CALL LIGHT WITHIN REACH. NO OTHER NEEDS AT THIS TIME
--- NOTE | 2019-07-20 17:56 | NUR ---
PT RESTING IN HIS BED WATCHING TV AND IS VISITING WITH HIS . HE DENIES ANY PAIN OR PROBLEMS AT THIS TIME.
--- NOTE | 2019-07-20 19:00 | NUR ---
RECEIVED REPORT FROM YARELI GUSMAN. pt LAYING IN BED. NO REQUESTS AT THIS TIME. WHITEBOARD UPDATED. CALL LIGHT WITHIN REACH.
--- NOTE | 2019-07-20 20:34 | NUR ---
pt LAYING IN BED WATCHING TV. ASSESSMENT DONE. UPDATED ON PLAN OF CARE. pt DENIED PAIN AT THIS TIME. OLD SHADOWING NOTED ON DRESSINGS. MEDICATIONS GIVEN (SEE MAR). POSSESSIONS AND CALL LIGHT WITHIN REACH. NO FURTHER REQUESTS AT THIS TIME.
--- NOTE | 2019-07-20 22:18 | NUR ---
VITALS AND I&OS DONE AND CHARTED. BEDSIDE TABLE AND CALL LIGHT IN REACH. PT NEEDS NOTHING MORE AT THIS TIME.
--- NOTE | 2019-07-21 00:13 | NUR ---
ROUNDED ON pt. RESTING IN BED. EMPTIED URINAL. CALL LIGHT WITHIN REACH. REFUSED EYE DROPS AT THIS TIME.
--- NOTE | 2019-07-21 02:15 | NUR ---
ROUNDED ON pt. RESTING WITH EYES CLOSED, RESPIRATIONS REGULAR AND UNLABORED. CALL LIGHT WITHIN REACH.
--- NOTE | 2019-07-21 04:22 | NUR ---
ROUNDED ON pt. RESTING WITH EYES CLOSED, RESPIRATIONS REGULAR AND UNLABORED. CALL LIGHT WITHIN REACH.
--- NOTE | 2019-07-21 05:02 | NUR ---
pt RESTED MOST OF SHIFT. LOW URINE OUTPUT LIKE PRIOR SHIFT. DID NOT GET OUT OF BED. DENIED PAIN DURING SHIFT. USES CALL LIGHT APPROPRIATELY.
--- NOTE | 2019-07-21 05:32 | NUR ---
ROUNDED ON pt. RESTING WITH EYES CLOSED, RESPIRATIONS REGULAR AND UNLABORED. URINAL EMPTIED. I&OS RECORDED. WHITEBOARD UPDATED. CALL LIGHT WITHIN REACH.
--- NOTE | 2019-07-21 07:25 | NUR ---
REPORT RECEIVED FROM YARELI MARTINEZ. PT RESTING IN BED WITH EYES CLOSED. RESPIRATIONS EVEN AND UNLABORED. PT ALLOWED TO REST. CALL LIGHT WITHIN REACH. BED RAILS UP.
--- NOTE | 2019-07-21 09:41 | NUR ---
MORNING ASSESSMETN AND MEDICATION DUE. PT SITTING UP IN BREAKFAST FINISHED EATING. PT ENCOURAGED TO GET UP TO CHAIR. 1PA, FWW UP TO CHAIR. ASSESSMENT SHELBIE. PT REPORTS 2/10 LEFT HIP PAIN, SEE MAR FOR MEDICAITON GIVEN. LUNG SOUNDS CLEAR, MINIMAL COUGH NOTED. PT VOIDING QUANTITY SUFFICIENT AT THIS TIME. URINAL AT CHAIRSIDE. PT ADMINISTERS EYE DROPS TO SELF. PIV STARTED PER PROTOCOL FOR FERAHEME INFUSION. NO ADDITIONAL REQUESTS OR COMPLAINTS AT THIS TIME. CALL LIGHT WITHIN REACH.
--- NOTE | 2019-07-21 10:07 | NUR ---
PATIENT SITTING UP IN CHAIR. VITAL SIGNS AND I&O DONE. LINENS CHANGED. CALL LIGHT WITHIN REACH. NO OTHER NEEDS AT THIS TIME
--- NOTE | 2019-07-21 10:22 | NUR ---
CAITY ARRIVED FROM [facility]. THIS RN TO ROOM TO CHECK ON PT. PT UP TO CHAIR. CAITY STARTED (SEE MAR). OVERRIDE ALARM FOR RATE OF 468 WITH 117ML VOLUME. [facility] CALLED, MELVINA HERRERA STATES OK TO OVERIDE. WATER REFILLED. PT DENIES ADDITIONAL REQUESTS OR COMPLAINTS. CALL LIGHT WITHIN REACH.
--- NOTE | 2019-07-21 10:42 | NUR ---
PATIENT SITTING UP IN CHAIR. PATIENT REFUSED TO TAKE A SHOWER TODAY BECAUSE HE TOOK A SHOWER YESTERDAY. CALL LIGHT WITHIN REACH. NO OTHER NEEDS AT THIS TIME
--- NOTE | 2019-07-21 11:22 | NUR ---
FARAHEME INFUSION COMPLETE. PIV SALINE LOCKED. PT WORKING WITH PHYSICAL THERAPY. PT REPORTS 1/10 PAIN IN LEFT HIP. NO ADDITIONAL REQUESTS OR COMPLAINTS AT THIS TIME. CALL LIGHT WITHIN REACH.
--- NOTE | 2019-07-21 12:39 | NUR ---
MEDICATION DUE. THIS RN TO ROOM TO CHECK ON PT. PT UP TO CHAIR. FINISHED WITH LUNCH. EYE DROPS GIVEN. PT DENIES PAIN AND NAUSEA AT THIS TIME. PT DENIES ADDITIONAL REQUESTS OR COMPLAINTS AT THIS TIME. PT REPORTS WALKING WITH PHYSICAL THERAPY WENT WELL. HE REPORTS WALKING TO EDGE OF ROOM AND BACK AND WANTS TO TRY AGAIN THIS AFTERNOON. CALL LIGHT WITHIN REACH.
--- NOTE | 2019-07-21 13:50 | NUR ---
PATIENT AMBULATING IN THE HALLWAY. TWO PERSON ASSISTING.
--- NOTE | 2019-07-21 13:56 | NUR ---
THIS RN TO ROOM TO CHECK ON PT. PT UP TO AMBUATE WITH THIS RN IN MAX X1 SMALL LAP. PT TOLERATED WELL, ESPRESSES FRUSTRATION WITH RIGHT SIDED WEAKNESS. GAIT BELT AND FWW USED. PT BACK TO CHAIR AND STATES HE IS GOING TO REST NOW. PT DENIES PAIN AND NAUSEA. CALL LIGHT WITHIN REACH. WATER REFILLED.
--- NOTE | 2019-07-21 15:51 | NUR ---
PTS FAMILY ARRIVED TO VISIT. FAMILY BROUGHT FOOD FOR PT. TAKEN TO ROOM. PT HAS NO ADDITIONAL REQUESTS OR COMPLAINTS DENIES PAIN AND NAUSEA. CALL LIGHT WITH IN REACH.
--- NOTE | 2019-07-21 16:50 | NUR ---
THIS RN TO ROOM TO CHECK ON PT. PT REPORTS 5/10 PAIN IN LEFT HIP "AFTER ALL THAT WALKING." SEE MAR FOR MEDICAITON GIVEN. PT VISITING WITH FAMILY AND WATCHING TV. PT DECLINES SENNA STATING "I'M NORMAL RIGHT NOW AND DONT' NEED THE MEDICINE FOR MY BOWELS." PT DENIES ADDITIONAL REQUESTS OR COMPLAINTS AT THIS TIME. CALL LIGHT WITHIN REACH.
--- NOTE | 2019-07-21 17:22 | NUR ---
PT HERE FOR DECONDITIONING AND ANEMIA AFTER L FEMORAL FRACTURE. 1PA WITH FWW AND GAIT BELT THIS SHIFT. PT ABLE TO AMBULATE 1 SMALL LAP IN MAX. PT/OT INVOLVED. PIV STARTED IN RFA FOR FERAHEME INFUSION THIS SHIFT. REMAINS SALINE LOCKED AT THIS TIME. VOIDING QUANTITY SUFFICIENT. PT UP TO CHAIR FOR MOST OF THIS SHIFT. DRESSINGS REMAIN UNCHANGED. PRN TYELNOL GIVEN FOR PAIN WITH AMBULATION. PT USES CALL LIGHT APPROPRIATLY.
--- NOTE | 2019-07-21 17:51 | NUR ---
PATIENT SITTING UP IN CHAIR. IN ROOM. I&O DONE. CALL LIGHT WITHIN REACH. NO OTHER NEEDS AT THIS TIME
--- NOTE | 2019-07-21 18:32 | NUR ---
THIS RN TO ROOM TO CHECK ON PT. PT REPORTS 1/10 PAIN IN LEFT HIP AND DENIES NEED FOR ADDITIONAL PAIN MEDICAITON. PT UP TO CHAIR WATCHING "THE GAME." PT DENIES ADDITIONAL REQUESTS OR COMPLAINTS AT THIS TIME. CALL LIGHT WITHIN REACH. FAMILY AT BEDSIDE.
--- NOTE | 2019-07-21 18:47 | NUR ---
PT CALL LIGHT ON. PT REQUESTS ASSISTANCE BACK TO BED. 2PA, FWW BACK TO BED. URINAL EMPTIED. PTS CHOCOLATE MILK PLACED IN REFRIGERATOR. PT STATES HE IS COMFORTABLE. NO ADDITIONAL REQUESTS OR COMPLAINTS AT THIS TIME. CALL LIGHT WITHIN REACH.
--- NOTE | 2019-07-21 20:04 | NUR ---
RECEIVED REPORT FROM DAY SHIFT RN. PATIENT IS RESTING IN BED WATCHING TV. PATIENT DENIES ANY NEEDS. CALL ISIDRO WRIGHT.
--- NOTE | 2019-07-21 20:34 | NUR ---
took vitals, I&Os done,
--- NOTE | 2019-07-21 21:50 | NUR ---
PATIENT IS RESTING IN BED. PATIENTS ASSESMENT COMPLETED. PATIENT RATES PAIN AT A 2/10. PATIENT GIVEN PRN TYLENOL PER ORDER. PATIENT HAS X3 DRESSINGS PRESENT ON LEFT LEG, AND OLD DRAINGE NOTED ON ONE OF UPPER DRESSINGS. PATIENT GIVEN EVENING MEDICATIONS PER ORDER. PATIENT IS ON RA. PATIENT IS AAOX3. PATIENT DENIES ANY NEEDS. CALL LIGHT IN REACH.
--- NOTE | 2019-07-21 23:40 | NUR ---
PATIENT IS RESTING IN BED WITH EYES CLOSED, RR 17. CALL LIGHT IN REACH.
--- NOTE | 2019-07-22 01:49 | NUR ---
PATIENT IS RESTING IN BED WITH EYES CLOSED, RR 17. CALL LIGHT IN REACH.
--- NOTE | 2019-07-22 03:46 | NUR ---
PATIENT IS RESTING IN BED WITH EYES CLOSED, RR 16. CALL LIGHT IN REACH.
--- NOTE | 2019-07-22 05:09 | NUR ---
PATIENT RESTED WELL THROUGHOUT THE SHIFT. PATIENT IS ON A 2GM NA LIMITS. PATIENT IS A 1-2 PA W/FWW. PATIENT IS ON SWING BED STATUS AND IS WORKING WITH PT/OT. PATIENT HAS X3 DRESSING ON OUTSIDE OF UPPER LEFT LEG. UPPER DRESSING HAS SLIGHT DRAINAGE NOTED. ARCENIOTENT HAS A BRUISE ON LEFT LEG. PATIENT IS BLIND IN HIS RIGHT EYE. PATIENT HAS RIGHT SIDED WEAKNESS FROM PREVIOUS STROKE. PATIENT IS AAOX3 AND USES CALL LIGHT APPROPRIATELY.
--- NOTE | 2019-07-22 05:25 | NUR ---
PATIENT IS RESTING IN BED. PATIENT RATES PAIN AT A 4/10 IN HIS LEFT LEG. PATIENT GIVEN PRN TYLENOL PER ORDER. PATIENTS URINAL EMPTIED. INTKAE AND OUPUT RECORDED. PAITENT DENIES ANY NEEDS. CALL LIGHT IN REACH.
--- NOTE | 2019-07-22 07:20 | NUR ---
REPORT RECIEVED FROM YARELI FREEMAN. PT WATCHING TV SITTING UP IN BED AWAITING BREAKFAST. PT REPORTS 0/10 PAIN. NO REQUESTS OR COMPLAINTS AT THIS TIME. CALL LIGHT WITHIN REACH.
--- NOTE | 2019-07-22 07:35 | NUR ---
PATIENT RESTING IN BED. PATIENT TRANSFERRED TO CHAIR. PATIENT USES WALKER AND GATE BELT. ONE PERSON ASSISTING. LINENS CHANGED. WARM BLANKET PROVIDED. SETS UP TABLE FOR BREAKFAST. WATER GIVEN. CALL LIGHT WITHIN REACH. NO OTHER NEEDS AT THIS TIME
--- NOTE | 2019-07-22 09:02 | NUR ---
MORNING ASSESSMENT AND MEDICATION DUE. THIS RN TO BEDSIDE. PT UP TO CHAIR, FINISHED WITH BREAKFAST. 1PA, FWW AMBULATION IN ROOM. PT TOLERATED WELL. PT DENIES PAIN AND NAUSEA AT THIS TIME STATING "IT'S JUST THAT LEFT HIP THAT IS SORE EVERY ONCE IN A WHILE." PT DENIES NEED FOR PAIN MEDICATION. LUNG SOUNDS CLEAR. DRESSINGS REMAIN DRY AND INTACT. OLD SHADOWING NOTED. NO NEW DRAINGAGE NOTED. MEDICATIONS GIVEN. PT DECLINES SENNA STATING "I REALLY DON'T NEED THAT." NO ADDITIONAL REQUESTS OR COMPLAINTS AT THIS TIME. CALL LIGHT WITHIN REACH.
--- NOTE | 2019-07-22 09:41 | NUR ---
PATIENT SITTING UP IN CHAIR. RN IN ROOM. VITAL SIGNS AND I&O DONE. CALL LIGHT WITHIN REACH. NO OTHER NEEDS AT THIS TIME
--- NOTE | 2019-07-22 10:52 | NUR ---
THIS RN TO ROOM TO CHECK ON PATIENT. PT DENIES PAIN AND NAUSEA. 1PA, FWW UP TO STAND AND USE URINAL. PT ENCORUAGED TO AMBULATE BUT STATES "I'M NOT QUITE READY YET." NO ADDITIONAL REQUESTS OR COMPLAINTS. CALL LIGHT WITHIN REACH.
--- NOTE | 2019-07-22 12:00 | NUR ---
PHYSICAL THERAPIST TO NURSES STATION STATING PT FEELS VERY DIZZY IS PALE AND UNABLE TO TOLERATE ACTIVITY. THIS RN TO ROOM. VITALS TAKEN. PT RESTING IN CHAIR. RR = 20. O2 = 100% ON ROOM AIR, AND BP = 113/59. PT REPORTS DIZZINESS, SBO, AND WEAKNESS WITH ACTIVITY. PT ENCORUAGED TO REST. WILL CONTINUE TO MONITOR.
--- NOTE | 2019-07-22 12:44 | NUR ---
THIS RN TO ROOM TO CHECK ON PT. PT DENIES SOB AND DIZZINESS AT THIS TIME. O2 100% ON ROOM AIR. RR = 18. PT STATES HE FEELS BETTER AFTER RESTING. DRESSINGS UNCHANGED. LUNG SOUNDS CLEAR. PT EATING LUNCH. ENSURE PROVIDED TO INCREASE STRENGTH. EYE DROPS GIVEN. PT DENIES ADDITIONAL REQUESTS OR COMPLAINTS. CALL LIGHT WITHIN REACH.
--- NOTE | 2019-07-22 14:13 | NUR ---
PATIENT SITTING UP IN CHAIR. I&O DONE. CALL LIGHT WITHIN REACH. NO OTHER NEEDS AT THIS TIME
--- NOTE | 2019-07-22 14:29 | NUR ---
THIS RN TO ROOM TO CHECK ON PT. PT WORKING WITH PHYSICAL THERAPY. PT REPORTS FEELING MORE TIRED AND WEAK TODAY. PT ABLE TO AMBULATE OUT TO NURSES STATION AND BACK TO ROOM. PT REMAINS ON 6L O2 BY NC, O2 SATURATION 93%. NO ADDITIONAL REQUESTS OR COMPLAINTS AT THIS TIME.
--- NOTE | 2019-07-22 14:36 | NUR ---
THIS RN TO ROOM TO CHECK ON PT. PT WATCHING TV. PT REPORTS 3/10 PAIN IN LEFT HIP. SEE MAR FOR MEDICATION GIVEN. GAMES OFFERED TO PT, PT DECLINES AT THIS TIME. NO ADDTIIONAL REQUESTS OR COMPLAINTS. CALL LIGHT WITHIN REACH.
--- NOTE | 2019-07-22 16:07 | NUR ---
PATIENT REFUSED TO TAKE A SHOWER TODAY BECAUSE HE FEELS VERY TIRED.
--- NOTE | 2019-07-22 16:21 | NUR ---
AFTERNOON MEDICATIONS DUE. THIS RN TO ROOM. PT VISITING WITH FAMILY AND FRIENDS. PT SHOWS PICTURES OF HIS ANIMALS AT HOME. PT EXPRESSES HOMESICKNESS. PT CONTINUES TO REPORT FEELING WEAKER TODAY AND IS NOT UP FOR A SHOWER OR WALK. PT ALLOWED TO REST TODAY. PALE SKIN NOTED. O2 SATURATION 100% ON ROOM AIR. RR = 20. MEDICATION GIVEN. PT DECLINES SENNA STATING HE HAS BEEN REGULAR. FAMILY AT BEDSIDE. CALL LIGHT WITHIN REACH. WATER REFILLED.
--- NOTE | 2019-07-22 17:02 | NUR ---
PT SWING BED FOR DECONDITIONING AND ANEMIA. PT WEAKER TODAY, DIZZY, AND TIRED. PHYSICAL THERAPY THIS SHIFT WITH POOR TOLERANCE. SHOWER DECLINED THIS SHIFT BECAUSE OF WEAKNESS AND EXHAUSTION. 2PA, FWW UP TO CHAIR MOST OF THIS SHIFT. PT TOLERATING 2G NA+ DIET. TYLENOL GIVEN FOR 3/10 PAIN THIS SHIFT. VOIDING QUANTITY SUFFICIENT. PT USES CALL LIGHT APPROPRIATLY.
--- NOTE | 2019-07-22 17:26 | NUR ---
CALL LIGHT ANSWERED. PATIENT SITTING UP IN CHAIR. IN ROOM. PATIENT TRANSFERRED TO BED. PATIENT USES WALKER AND GATE BELT. I&O DONE. PATIENT REFUSED TO ORDER DINNER. CALL LIGHT WITHIN REACH. NO OTHER NEEDS AT THIS TIME
--- NOTE | 2019-07-22 17:41 | NUR ---
THIS RN TO ROOM TO CHECK ON PT. PT REPORTS 8/10 PAIN IN LEFT LEG/HIP AFTER MOVING BACK TO BED. PT STATES "IT DOESN'T REALLY FEEL ANY DIFFERENT THAN NORMAL IT IS JUST REALLY SORE AFTER SITTING IN THE CHAIR ALL DAY." LEFT LEG WOUNDS ASSESED. NO CHANGE IN SHADOWING. PT REPORT SNEEZING MAKES PAIN WORSE. ABDOMEN ASSESSED. ABDOMEN SOFT AND NON TENDER. MEDICAITON GIVEN (SEE MAR). PT WATCHING TV AND VISITING WITH . NO ADDITIONAL REQUESTS OR COMPLAINTS AT THIS TIME. CALL LIGHT WITHIN REACH.
--- NOTE | 2019-07-22 18:53 | NUR ---
THIS RN TO ROOM TO CHECK ON PT. PT STATES HIS PAIN IS "COMING DOWN" NOW AT A 6-03/28. NO ADDITIONAL REQUESTS OR COMPLAINTS AT THIS TIME. CALL LIGHT WITHIN REACH.
--- NOTE | 2019-07-22 19:31 | NUR ---
REPORT RECEIVED FROM DAY SHIFT RN. PT ALERT AND ORIENTED, LYING IN BED. NO REQUESTS AT THIS TIME. CALL LIGHT IN REACH.
--- NOTE | 2019-07-22 21:34 | NUR ---
ROUNDED CHARGE. PATIENT IS RESTING IN BED WATCHING TV. PATIENT DENIES ANY PAIN. NO NEEDS NOTED. CALL LIGHT IN REACH.
--- NOTE | 2019-07-22 21:50 | NUR ---
ASSESSMENT COMPLETE. LEFT HIP SURGICAL SITES X 3 COVERED WITH HYDROCOLLOID DRESSING, NO NEW DRAINAGE NOTED FROM PREVIOUS MARKINGS. LUNGS CLEAR, RA. I&0 AND VS COMPLETE. ENCOURAGED PT TO INCREASE ORAL INTAKE. PM MEDS GIVEN WITH OUT DIFFICULTY. PT DID OWN EYE DROPS. MEDICATED WITH PRN TYELON FOR 5/10 HIP PAIN. PT DENIES OTHER NEEDS AT THIS TIME. CALL LIGHT IN REACH.
--- NOTE | 2019-07-22 23:50 | NUR ---
PT RESTING IN BED WITH EYES CLOSED, NAD. SCHEDULED EYE DROPS HELD DUE TO PT SLEEPING. CALL LIGHT IN REACH.
--- NOTE | 2019-07-23 01:53 | NUR ---
PT CONTINUES TO REST IN BED WITH EYES CLOSED, RR EVEN AND UNLABORED. CALL LIGHT IN REACH.
--- NOTE | 2019-07-23 04:46 | NUR ---
IN TO CHECK ON PT. PT CONTINUES TO REST IN BED WITH EYES CLOSED, NAD. FRESH WATER GIVEN. CALL LIGHT IN REACH.
--- NOTE | 2019-07-23 05:11 | NUR ---
PT RESTED WELL. PT TOLERATING A 2 GR NA+, SOFT DIET. MEDICATED ONCE WITH PRN TYLENOL FOR PAIN. HYDROCOLLOID DRESSINGS X 3 ON LEFT HIP, NO NEW DRAINAGE NOTED. BILAT LE EDEMA. 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 AMB WITH 2 PA AND FWW. ALERT AND ORIENTED. USES CALL LIGHT APPROPRIATELY.
--- NOTE | 2019-07-23 07:20 | NUR ---
REPORT RECEIVED FROM YARELI SHARMA. PT RESTING ON BACK IN BED WITH EYES CLOSED. RESPIRATIONS EVEN AND UNLABORED. URINE OUTPUT ONLY 350 FOR LAST SHIFT, ZACHARY RN CALLING MD WITH UPDATE. BED RAILS UP. CALL LIGHT WITHIN REACH.
--- NOTE | 2019-07-23 07:25 | NUR ---
MD NOTIFIED OF LOW URINE OUTPUT FOR NOC SHIFT. MD SAID TO ENCOURAGE ORAL INTAKE. PASSED ALONG TO DAY SHIFT RN.
--- NOTE | 2019-07-23 08:04 | NUR ---
PATIENT DECLINED WEEKEND AND MORNING NEWSPAPER. PATIENT SITTING UP IN BED TALKING ON THE PHONE. CALL LIGHT IN REACH, NO OTHER NEEDS AT THIS TIME.
--- NOTE | 2019-07-23 08:15 | NUR ---
PATIENT WAS AWAKE OFFERED TO HELP HIM TO THE RESTROOM SAID HE ALL READY GONE, FRESH WATER GIVEN CALL LIGHT IN REACH. WAITING ON BREAKFAST.
--- NOTE | 2019-07-23 09:16 | NUR ---
MORNING ASSESSMENT AND MEDICATION DUE. PT REMAINS IN BED, STATES HE NEEDS TO REST MORE BEFORE GETTING UP. PT REPROTS 8/10 PAIN IN LEFT LEG "IT STARTS IN MY KNEE AND GOES DOWN TO MY TOES." PT REPORTS PAIN IS A LOT WORSE WHEN HE SNEEZES OR COUGHS "I WANT TO CRY WHEN I SNEEZE." SEE MAR FOR MEDICATION GIVEN. VOIDING QUANTITY NOT SUFFIICIENT, MD AWARE. FLUIDS ENCORUAGED. PT DRINKS 250ML FOR THIS RN. PT STATES HE WILL KEEP DRINKING. LUNGS SOUNDS CLEAR. DRESSINS REMAIN UNCHANGED. +1 EDEMA TO LLE, PT ABLE TO LIFT TOES AND LEG. NO ADDITIONAL REQUESTS OR COMPLAINTS AT THIS TIME. CALL LIGHT WITHIN REACH.
--- NOTE | 2019-07-23 11:02 | NUR ---
THIS RN TO ROOM TO CHECK ON PT. PT REPORTS 4/10 PAIN AND DENIES NEED FOR ADDITIONAL PAIN MEDICATION. PT ENCORUAGED TO GET UP TO CHAIR. PT DECLINES AT THIS TIME STATING "I'M STILL JUST A BIT WORRIED ABOUT HOW THAT LEG IS GOING TO ACT." PT WATCHING TV. NO ADDITIONAL REQUESTS OR COMPLAINTS AT THIS TIME. FLUIDS ENCORUAGED. PTS CHOCOLATE MILK PROVIDED PER PT REQUEST. CALL LIGHT WITHIN REACH.
--- NOTE | 2019-07-23 12:50 | NUR ---
THIS RN TO ROOM TO CHECK ON PT. PT UP TO CHAIR FOR LUNCH. PT REPORST 12/27 PAIN AND STATES TYELNOL WOULD BE "OK" RIGHT NOW. SEE MAR FOR MEDICATION GIVEN. JORGITO BROUGHT TO PTS ROOM FOR ACTIVITY. SMALL KITTEN FIGURES MADE WITH PT OUT OF JORGITO. PT STATES "THAT WAS FUN." FLUIDS ENCORUAGED. PT STATES "I'M DRINKING MUCH I CAN." CALL LIGHT WITHIN REACH. NO ADDITIONAL REQUESTS OR COMPLAINTS AT THIS TIME.
--- NOTE | 2019-07-23 15:53 | NUR ---
THIS RN TO ROOM TO CHECK ON PT. PT ENCORUAGED TO AMBULAATE. PT REPROTS 5/10 PAIN. SEE MAR FOR MEDICATION GIVEN. PT UP WITH GAIT BELT, 1PA, AND FWW. UP TO STAND. PT REPORTS WEAKNESS. PT STATES HE DOES NOT FEEL ABLE TO AMBULATE IN MAX BUT AGREES TO SHOWER. SHOWER, SHAMPOO, HARMAN CARE, SKIN CARE. PT BACK TO CHAIR. AMBULATING MUCH MORE SMOOTHLY. PT STATES "I FEEL A LOT BETTER AFTER THAT SHOWER." LINENES CHANGED. PT ENCOURAGED TO DRINK FLUIDS. WATER REFILLED. PT VISITING WITH FAMILY. CALL LIGHT WITHIN REACH.
--- NOTE | 2019-07-23 16:12 | NUR ---
Constantin sitting up in recliner. States he is feeling better following and iron infusion. Planning on working with PT in the next hour. Hoping he can walk in the diaz today. He has several rosemarie figures he has been making for activity.
--- NOTE | 2019-07-23 17:52 | NUR ---
THIS RN TO ROOM TO CHECK ON PT. PT REPORTS 5/10 PAIN BUT DENIES NEED FOR ADDITONAL PAIN MEDICATION AT THIS TIME. PT DENIES OTHER REQUESTS OR COMPLAINTS. PTS GRANDDAUGHTER CALLED ON PHONE. CALL LIGHT WITHIN REACH. FAMILY AT BEDSIDE.
--- NOTE | 2019-07-23 17:57 | NUR ---
PT SWING BED FOR DECONDITIONING. 1-2PA WITH FWW UP TO AMBULATE WITH PHYSICAL THERAPY AND FOR SHOWER THIS SHIFT. 3-7/10 PAIN, PRN PAIN MEDICATIONS GIVEN WIHT GOOD RESULTS. PT UP TO CHAIR FOR MOST OF THIS SHIFT. SWING BED ACTIVITIES DONE. URINE OUTPUT REMAINS LOW, FLUIDS ENCORUAGED, ENSURE PROVIDED. NO NAUSEA THIS SHIFT. DRESSINGS REMAIN UNCHANGED. PT USES CALL LIGHT APPROPRIATLY.
--- NOTE | 2019-07-23 18:52 | NUR ---
PT CALL LIGHT ON. PT REQUESTS ASSISTANCE BACK TO BED. 2PA, FWW UP TO STAND AND BACK TO BED. PT REPORTS 8/10 PAIN WITH MOVEMENT AND CRIES OUT WHEN TYRING TO SIT OR REPOSITION IN BED. SEE MAR FOR MEDICATION GIVEN. ICE PACK PROVIDED FOR ADDITIONAL PAIN CONTROL. PT DENIES ADDITIONAL REQUESTS OR COMPLAINTS. CALL LIGHT WITHIN REACH.
--- NOTE | 2019-07-23 19:40 | NUR ---
REPORT RECEIVED FROM DAY SHIFT RN. PT LYING IN BED, ALERT AND ORIENTED. IN ROOM. NO REQUESTS OR QUESTIONS AT THIS TIME. CALL LIGHT IN REACH.
--- NOTE | 2019-07-23 20:50 | NUR ---
ASSESSMENT COMPLETE. DRESSINGS X 3 ON LEFT HIP INTACT, NO NEW DRAINAGE NOTED. PT DENIES PAIN AT THIS TIME. PT ABLE TO DO HIS OWN EYE DROPS. VS AND I&O COMPLETE. CONTINUE TO ENCOURAGE PO FLUIDS. NO FURTHER NEEDS AT THIS TIME. CALL LIGHT IN REACH.
--- NOTE | 2019-07-23 21:00 | NUR ---
PATIENTS VITALS TAKEN AND RECORDED. PATIENTS INTAKE AND OUTPUT RECORDED. NO NEEDS NOTED. CALL LIGHT IN REACH.
--- NOTE | 2019-07-24 00:40 | NUR ---
IN TO CHECK ON PT. PT RESTING IN BED WITH EYES CLOSED, NAD. URINAL EMPTIED OF 350 ML CL YELLOW URINE. SCHEDULED EYE DROPS HELD DUE TO PT SLEEPING. CALL LIGHT IN REACH.
--- NOTE | 2019-07-24 04:46 | NUR ---
PT AWAKE IN BED USING URINAL, EMPTIED 550 ML CL YELLOW URINE. PT REFUSES 0400 EYE DROP THAT IS NOT HOW HE TAKES IT AT HOME. DENIES PAIN. NO OTHER REQUESTS AT THIS TIME. CALL LIGHT IN REACH.
--- NOTE | 2019-07-24 06:32 | NUR ---
PT SLEPT WELL. A&O. USES URINAL IN BED. VOIDING QS. DENIES PAIN AT REST. LEFT HIP DRESSINGS X 3, NO NEW DRAINAGE NOTED. CMS INTACT.
--- NOTE | 2019-07-24 08:52 | NUR ---
PT SITTING UP IN BED EATING ALERT AND ORIENTED. PT DENIES NEEDS OR CONCERNS. ASSESSMENT COMPLETED. AM MEDS ADMINISTERED. CALL LIGHT AND H2O IN REACH.
--- NOTE | 2019-07-24 11:58 | NUR ---
PT SITTING UP IN CHAIR, ALERT AND ORIENTED. PT DENIES PAIN, SOB, NAUSEA OR NUMBNESS/TINGLING. LUNCH TRAY ARRIVED AND ASSISTED IN SETTING UP TRAY FOR PATIENT. CALL LIGHT AND H2O IN REACH. PT DENIES NEEDS OR CONCERNS.
--- NOTE | 2019-07-24 14:01 | NUR ---
PT SITTING IN CHAIR, WAITING FOR MASS TO COME ON TV. PLEASANT BUT SHORT VISIT. DID NOT WANT TO KEEP PT FROM MASS. EXTENDED A BLESSING, REQUESTED I HAVE DIRECTOR OF BILLING COME FOR A VISIT IF POSSIBLE. MADE CONTACT. WILL FOLLOW NEEDED
--- NOTE | 2019-07-24 15:00 | NUR ---
PT RESTING RECLINED IN CHAIR WITH EYES CLOSED AND RESPIRATIONS EVEN AND UNLABORED. PT ASSESSMENT COMPLETED. CALL LIGHT AND H2O IN REACH. PT DENIES NEEDS OR CONCERNS.
--- NOTE | 2019-07-24 15:26 | NUR ---
In to see patient, pt alert and oriented watching the news on tv. Pt provided with fresh h2o and soda per his request. Pt also assisted with ambulating in room with 1pa and fww. Pt back to chair sitting up in chair with call light and h2o in reach. Pt denies further needs or concerns.
--- NOTE | 2019-07-24 16:51 | NUR ---
PT SITTING UP IN CHAIR ALERT AND ORIENTED. CALL LIGHT AND H2O IN REACH. PT DENIES NEEDS OR CONCERNS. FAILY AT BEDSIDE VISITING WITH PATIENT. PT DENIES PAIN, SOB OR NAUSEA. ABX EYE GTT ADMINISTERED.
--- NOTE | 2019-07-24 17:18 | NUR ---
Met with Constantin. He is up in chair. States he went for a long walk, returned to room and walked to bathroom, then returned to walk in the diaz. States he did not suffer pain while walking today.
--- NOTE | 2019-07-24 18:05 | NUR ---
PT SITTING IN CHAIR. PT HAS NO NEEDS AT THIS TIME.
--- NOTE | 2019-07-24 18:45 | NUR ---
PT TRANSFERED TO BED WITH WALKER AND [employer] STORAGE ARCHITECT. PT STATES THAT PAIN WAS MINIMAL. PT HAS NO NEEDS AT THIS TIME.
--- NOTE | 2019-07-24 19:25 | NUR ---
IN ROOM FOR REPORT, PT IS AWAKE IN BED. HE REPORTS 6/10 PAIN DAY SHIFT RN WILL GIVE THAT TO PT BEFORE LEAVING. CALL LIGHT IS CLOSE.
--- NOTE | 2019-07-24 19:32 | NUR ---
PT RESTING SUPINE IN BED ALERT AND ORIENTED STATES "I GOT TO BED AND MY LEFT HIP WAS ACHING AND I SNEEZED AND THE PAIN JUST SHOT THROUGH THE ROOF" PT REPORTS 8/10 ACHING PAIN TO LEFT HIP. PRN PO ANALGESICS ADMINISTERED -SEE EMAR. PT PROVIDED WITH WARM BLANKET. CALL LIGHT AND H2O IN REACH. PT DENIES FURTHER NEEDS OR CONCERNS.
--- NOTE | 2019-07-24 21:45 | NUR ---
ADMINISTERED MEDICATIONS AND ASSESSED PT. HE REPORTS OXYCODONE HELPED WITH PAIN BUT REPORTS PAIN AT 5/10 AT THIS TIME AND STATES IT IS TOLERABLE. L HIP DRESSINGS ARE INTACT WITH SHADOWING NOTED ON THE UPPER 2 DRESSINGS. PT HAS A SIGNIFICANT AMOUNT OF BRUISING ON LEFT LEG/HIP. PT DENIES FURTHER NEEDS AND CALL LIGHT IS WITHIN REACH.
--- NOTE | 2019-07-24 23:59 | NUR ---
PT IS AWAKE IN BED, HE DENIES NEEDS AT THIS TIME. CALL LIGHT IS CLOSE.
--- NOTE | 2019-07-25 02:30 | NUR ---
PT CALLED ASKING FOR URINAL, HE DENIES FURTHER NEEDS AT THIS TIME. CALL LIGHT IS CLOSE.
--- NOTE | 2019-07-25 04:28 | NUR ---
PT IS RESTING WITH EYES CLOSED, RR IS EVEN AND NONLABORED. CALL LIGHT IS CLOSE.
--- NOTE | 2019-07-25 04:58 | NUR ---
PT HAS RT SIDED DEFICITS AND AMBULATES 1-2PA WITH FWW. URINAL IS AT BEDSIDE. HE IS ON 2G SODIUM DIET. DRESSINGS ON LEFT HIP HAVE SOME SHADOWING AND HE HAS A LOT OF BRUISING DOWN LEFT LEG. HE HAD SOME PAIN AT THE START OF THE SHIFT WHICH REQUIRED OXYCODONE SINCE THEN HE HAS REPORTED IT TOLERABLE.
--- NOTE | 2019-07-25 07:17 | NUR ---
PT RESTING RECLINED IN CHAIR EYES CLOSED AND RESPIRATIONS EVEN AND UNLABORED. CALL LIGHT AND H2O IN REACH. BEDSIDE REPORT RECEIVED FROM YARELI SEPULVEDA.
--- NOTE | 2019-07-25 08:41 | NUR ---
PT RESTING IN SEMIFOWLERS POSITION IN BED. PT ALERT AND ORIENTED. AM MEDS ADMINSITERED, VSS. PT ASSESSMENT COMPLETED. CALL LIGHT AND H2O IN REACH. PT DENIES FURTHER NEEDS OR CONCERNS.
--- NOTE | 2019-07-25 10:43 | NUR ---
PT UP TO SHOWER WITH TORIBIO WOODARD. PT IS ALERT AND ORIENTED AND DENIES NEEDS OR CONCERNS.
--- NOTE | 2019-07-25 12:11 | NUR ---
PT SITTING UP IN CHAIR WATCHING TV AND EATING LUNCH. PT REPORTS SLIGHT PAIN TO LEFT LEG. PT REQEUSTED AND RECEIVED PRN PO TYLENOL. CALL LIGHT AND H2O IN REACH. NO FURTHER NEEDS OR CONCERNS VOICED. FAMILY AT BEDSIDE.
--- NOTE | 2019-07-25 14:03 | NUR ---
PT SITTING UP IN CHAIR VISITING WITH CASE MANAGEMENT. PT APPEARS TO BE IN NO ACUTE DISTRESS. CALL LIGHT AND H2O IN REACH. FAMILY AT BEDSIDE.
--- NOTE | 2019-07-25 15:07 | NUR ---
PATIENT AMBULATING IN THE HALLWAY WITH PHYSICAL THERAPIST. I&O DONE
--- NOTE | 2019-07-25 16:19 | NUR ---
In to speak with Constantin, Chante present. He is up in chair. Ask for clarification as he stated he went for a long walk yesterday and had 0 pain. He does not remember this conversation, but states he is walking in the room and a few feet into the diaz with his walker and back and forth to the bathroom. He denies all pain at rest, but states he does have pain when he puts weight on his leg. Spoke with PT and goal is 300 ft, he is walking 50 feet. Encouraged to continue to progress. He and agree.
--- NOTE | 2019-07-25 16:27 | NUR ---
Pt sitting up in chair, alert and oriented watching tv and visiting with family. Pt reports pain of 6/10 pain to left leg. [place] po tylenol administered per pt request. Call light and h2o in reach. Pt denies further needs or concerns.
--- NOTE | 2019-07-25 19:15 | NUR ---
IN ROOM FOR REPORT, PT IS AWAKE IN BED. HE DENIES NEEDS AT THIS TIME. CALL LIGHT IS CLOSE.
--- NOTE | 2019-07-25 22:16 | NUR ---
IN ROOM TO ASSESS PT AND ADMINISTER MEDICATIONS. ADMINISTERED OXYCODONE FOR 6/10 PAIN. WARM BLANKET PROVIDED. PT REPORTS HE IS TIRED AND SORE FROM WORKING WITH PT TODAY. HE DENIES FURTHER NEEDS AT THIS TIME. CALL LIGHT IS CLOSE.
--- NOTE | 2019-07-26 00:52 | NUR ---
PT IS RESTING WITH EYES CLOSED, RR IS EVEN AND NONLABORED. CALL LIGHT IS WITHIN REACH.
--- NOTE | 2019-07-26 02:57 | NUR ---
PT IS RESTING WITH EYES CLOSED, RR IS EVEN AND NONLABORED. CALL LIGHT IS WITHIN REACH.
--- NOTE | 2019-07-26 04:50 | NUR ---
PT IS RESTING WITH EYES CLOSED, RR IS EVEN AND NONLABORED. CALL LIGHT IS WITHIN REACH.
--- NOTE | 2019-07-26 07:46 | NUR ---
PT RESTING SUPINE IN BED ALERT AND ORIENTED. PT STATES "I DIDN'T SLEEP MUCH AT ALL LAST NIGHT, I WISH I HAD SOMETHING TO HELP ME FALL ASLEEP AT NIGHT". PT DENIES FURTHER NEEDS OR CONCERNS. PT STATES PAIN IS TOLERABLE AND DNEIES SOB OR NAUSEA. CALL LIGHT AND H2O IN REACH.
--- NOTE | 2019-07-26 08:38 | NUR ---
PATIENT WAS AWAKE FACE WASHED AND WATER GIVEN CALL LIGHT IN REACH.
--- NOTE | 2019-07-26 08:47 | NUR ---
PT RESTING IN SEMIFOWLERS POSITION IN BED, ALERT AND ORIENTED. AM MEDS ADMINISTERED AND VSS. ASSESSMENT COMPLETED. CALL LIGHT AND H2O IN REACH. PT DENIES FURTHER NEEDS OR CONCERNS.
--- NOTE | 2019-07-26 09:46 | NUR ---
In with care team during MDT meeting, Mr Handley recognizes the care members when they enter the room, and interacts with them appropriately. He is able to visit with each member of the care team and discuss his treatment, and his goals. Pastoral care was in the room, and Mr. Handley stated his appreciation for the Ultrasonographer coming to visit with him yesterday. Mr Handley was also informed that the Ultrasonographer would visit him again today, but would not be in Tuesday. We did offer Mr Handley to go in a wheelchair to mass which is held here in the hospital. Mr. Handley has stated that he does not feel like he is strong enough and able to tolerate sitting in a wheelchair for that extent of time. Mr Handley did state that he knew we televised Mass on T.V., and he has in fact been watching Mass daily from his room. He also expressed appreciation for his ability to watch Mass from his room. Mr Handley understands his goals for ambulation, standing for self-care, etc. He does also admit that his concern for going home in his current state would be his inability to ambulate after getting home. Mr Handley was very pleasant to visit with this morning.
--- NOTE | 2019-07-26 10:45 | NUR ---
MDT meeting completed with CM, Pharm, PT, OT, PC, Laser Engineer. Reviewed goals with patient. Pt states he was able to walk in diaz yesterday 158 ft with breaks.Goal is to walk 300 ft. with PT. Cont. to work with OT to dress self. States understanding of goals and states he is willing to work toward these goals. Denies questions for Pharm. Declines wc ride to Mass, but will watch on TV. Reads news paper and watches TV for activities.
--- NOTE | 2019-07-26 11:00 | NUR ---
PT RESTING SUPINE IN BED ALERT AND ORIENTED. PT WATCHING TV. PT STATES "I WISH I COULD GET THIS IV OUT OF MY ARM NOW THAT I AM DONE WITH THE IRON INFUSIONS". WILL CHECK TO SEE IF IV STILL INDICATED. CALL LIGHT AND H2O IN REACH PT DENIES FURTHER NEEDS OR CONCERNS.
--- NOTE | 2019-07-26 11:41 | NUR ---
PT SITTING UP IN CHAIR, ALERT AND ORIENTED WATCHING TV AND EATING LUNCH. IV TO RIGHT FA REMOVED AFTER RECEIVING OKAY FROM DR BURGOS. PT DENIES FURTHER NEEDS OR CONCERNS.
--- NOTE | 2019-07-26 12:22 | NUR ---
PT SITTING UP IN CHAIR WATCHING TV. PT DENIES SOB, PAIN OR NAUSEA. PT TOLERATED 100% OF LUNCH. CALL LIGHT AND H2O IN REACH. PT DENIES NEEDS OR CONCERNS.
--- NOTE | 2019-07-26 15:08 | NUR ---
PT SITTING UP IN CHAIR. PT REPORTS MILD PAIN TO LEFT LEG. PT REQUESTED AND RECEIVED PRN PO TYLENOL. CALL LIGHT AND H2O IN REACH.
--- NOTE | 2019-07-26 16:42 | NUR ---
Pt sitting up in chair watching tv. Call light and h2o in reach. Pt states pain to lle has dercreased and is tolerable. No needs or concerns voiced. Family at bedside.
--- NOTE | 2019-07-26 19:25 | NUR ---
RECEIVED REPORT FROM YARELI CORDERO. pt SITTING IN BED. NO REQUESTS AT THIS TIME. DENIES PAIN. WHITEBOARD UPDATED. CALL LIGHT WITHIN REACH.
--- NOTE | 2019-07-26 20:50 | NUR ---
pt COMPLAINED THAT PAIN WOKE HIM RATED 7/10, PRN PAIN MED GIVEN (SEE MAR) WITH SCHEDULED MEDICATIONS. ASSESSMENT DONE. pt REPORTED THAT PAIN HAD EASE SOME, NO CHANGES NOTED, pt STATED "I WONDER IF I TWISTED IT IN MY SLEEP" MARKETING CONTENT SPECIALIST IN ROOM TO DO VITALS AND I&O. CALL LIGHT WITHIN REACH.
--- NOTE | 2019-07-26 21:10 | NUR ---
VITALS AND I&OS DONE AND CHARTED.
--- NOTE | 2019-07-26 23:27 | NUR ---
ROUNDED ON pt. RESTING IN BED. ADJUSTED COVERS AND EMPTIED URINAL. STATED HIS PAIN IS "TOLERABLE" NO FURTHER REQUESTS AT THIS TIME. CALL LIGHT WITHIN REACH.
--- NOTE | 2019-07-27 02:12 | NUR ---
ROUNDED ON pt, RESTING WITH EYES CLOSED, RESPIRATIONS REGULAR AND UNLABORED. CALL LIGHT WITHIN REACH.
--- NOTE | 2019-07-27 03:20 | NUR ---
PT USED CALL LIGHT TO ASK FOR ASSISTANCE WITH HIS BLANKETS. THEY WERE "ALL JACKED UP". NOTHIHG FURTHER WAS NEEDED AT THIS TIME.
--- NOTE | 2019-07-27 04:43 | NUR ---
ROUNDED ON pt. RESTING WITH EYES CLOSED, RESPIRATIONS REGULAR AND UNLABORED. CALL LIGHT WITHIN REACH.
--- NOTE | 2019-07-27 04:59 | NUR ---
pt used call light to ask for his urinal to be rinsed. fresh water was offered but pt did not want any at this time.
--- NOTE | 2019-07-27 05:04 | NUR ---
ROUNDED ON pt. DENIES PAIN AT THIS TIME. NO REQUESTS AT THIS TIME. CALL LIGHT WITHIN REACH.
--- NOTE | 2019-07-27 05:16 | NUR ---
pt RESTED MOST OF SHIFT. 1PA FWW WITH RIGHT SIDED DEFICITS. USED URINAL AT BEDSIDE. TOLERATING 2GM SODIUM DIET. DRESSINGS ON LEFT LEG HAVE OLD SHADOWING. WOKE TO SEVERE PAIN, PRN PAIN MED X1. USES CALL LIGHT APPROPRIATELY.
--- NOTE | 2019-07-27 07:10 | NUR ---
PATIENT SITTING IN CHAIR WATCHING TV. REPORT RECEIVED, ORDERS ACKNOWLEDGED. PATIENT DENIES ANY FURTHER NEEDS AT THIS TIME, CALL LIGHT WITHIN REACH.
--- NOTE | 2019-07-27 07:30 | NUR ---
PATIENT RESTING IN BED. PATIENT TRANSFERRED TO CHAIR. PATIENT USES WALKER AND GATE BELT. ONE PERSON ASSISTING. HANDS AND FACE CLEANED. SETS UP TABLE FOR BREAKFAST. LINENS CHANGED. CALL LIGHT WITHIN REACH. NO OTHER NEEDS AT THIS TIME
--- NOTE | 2019-07-27 09:12 | NUR ---
PATIENT SITTING UP IN CHAIR. VITAL SIGNS AND I&O DONE. CALL LIGHT WITHIN REACH. NO OTHER NEEDS AT THIS TIME
--- NOTE | 2019-07-27 09:15 | NUR ---
PATIENT SITTING IN CHAIR WATCHING TV. AM MEDICATIONS GIVEN, ASSESSMENT COMPLETE. PATIENT DENIES PAIN. NO FURTHER NEEDS AT THIS TIME, CALL LIGHT WITHIN REACH.
--- NOTE | 2019-07-27 12:20 | NUR ---
PATIENT SITTING UP TO CHAIR, DENIES MUCH PAIN, "IT'S OKAY 12/27" DOES NOT WANT PAIN MEDICATIONS AT THIS TIME. PATIENT ATE 100% OF LUNCH.
--- NOTE | 2019-07-27 13:38 | NUR ---
PATIENT SITTING UP IN CHAIR. I&O DONE. CALL LIGHT WITHIN REACH. NO OTHER NEEDS AT THIS TIME
--- NOTE | 2019-07-27 14:52 | NUR ---
PATIENT AMBULATING HALLWAYS WITH PT, FWW AND 1PA
--- NOTE | 2019-07-27 14:56 | NUR ---
PATIENT AMBULATING IN THE HALLWAY WITH PHYSICAL THERAPIST AND TORIBIO WISE.
--- NOTE | 2019-07-27 15:30 | NUR ---
PATIENT SITTING IN CHAIR WATCHING TV WITH FAMILY IN THE ROOM. PATIENT DENIES ANY NEEDS AT THIS TIME, CALL LIGHT WITHIN REACH.
--- NOTE | 2019-07-27 16:21 | NUR ---
CALL LIGHT ANSWERED. PATIENT SITTING UP IN CHAIR. IN ROOM. PATIENT ASKS FOR PAIN MEDICINE. RN NOTIFIED. CALL LIGHT WITHIN REACH. NO OTHER NEEDS AT THIS TIME
--- NOTE | 2019-07-27 17:00 | NUR ---
PATIENT REPORTS PAIN IN LEFT HIP OF 8/10. PRN PAIN MEDICATION GIVEN. FAMILY IN ROOM VISITING, PATIENT IS SITTING IN CHAIR. DENIES ANY NEEDS AT THIS TIME, CALL LIGHT WITHIN REACH.
--- NOTE | 2019-07-27 17:47 | NUR ---
PATIENT SITTING UP IN CHAIR. IN ROOM. I&O DONE. CALL LIGHT WITHIN REACH. NO OTHER NEEDS AT THIS TIME
--- NOTE | 2019-07-27 19:18 | NUR ---
RECEIVED REPORT FROM YARELI BALLARD. pt RESTING IN BED. NO REQUESTS AT THIS TIME. WHITEBOARD UPDATED. CALL LIGHT WITHIN REACH.
--- NOTE | 2019-07-27 20:13 | NUR ---
pt RESTING IN BED. DENIES PAIN. ASSESSMENT DONE. MEDICATIONS GIVEN (SEE MAR). NO NEW SHADOWING NOTED ON DRESSINGS, DRY AND INTACT. pt REPORTED FEELING "VERY TIRED" DUE TO PT. NO REQUESTS AT THIS TIME. CALL LIGHT WITHIN REACH.
--- NOTE | 2019-07-27 20:25 | NUR ---
pts VS and I&Os complete. fresh water given. nothing further needed at this time.
--- NOTE | 2019-07-27 21:25 | NUR ---
SCREENER OPERATOR ROUNDING NOTE. PT SITTING UP IN BED WATCHING TV. PT DENIES QUESTIONS OR CONCERNS AT THIS TIME. WHITE BOARD UPDATED. CALL LIGHT IN REACH.
--- NOTE | 2019-07-27 23:18 | NUR ---
ROUNDED ON pt. RESTING WITH EYES CLOSED, RESPIRATIONS REGULAR AND UNLABORED. CALL LIGHT WITHIN REACH.
--- NOTE | 2019-07-28 01:42 | NUR ---
ROUNDED ON pt. RESTING WITH EYES CLOSED, RESPIRATIONS REGULAR AND UNLABORED. CALL LIGHT WITHIN REACH.
--- NOTE | 2019-07-28 03:35 | NUR ---
ROUNDED ON pt. RESTING WITH EYES CLOSED, RESPIRATIONS REGULAR AND UNLABORED. CALL LIGHT WITHIN REACH.
--- NOTE | 2019-07-28 06:34 | NUR ---
ROUNDED ON pt. RESTING WITH EYES CLOSED, RESPIRATIONS REGULAR AND UNLABORED. CALL LIGHT WITHIN REACH.
--- NOTE | 2019-07-28 07:20 | NUR ---
BEDSIDE HANDOFF REPORT RECEIVED FROM CLAIMS DIRECTOR RN. PT RESTING IN BED. PT DENIES NEEDS AT THIS TIME.
--- NOTE | 2019-07-28 12:25 | NUR ---
PT SITTING IN CHAIR, EATING LUNCH. PT GIVEN EYE DROP PER ORDER. PT STATES PAIN WAS MUCH BETTER TODAY WHEN WORKING WITH P.T. PT DENIES OTHER NEEDS AT THIS TIME.
--- NOTE | 2019-07-28 16:15 | NUR ---
PT GIVEN EYE DROP PER ORDER, PT REQUESTING OXYCODONE FOR WALKING IN THE MAX 5MG PO GIVEN. PT ASSISTED TO WALK IN THE MAX, 1PA WITH FWW, PT ABLE TO WALK AROUND NURSING FLOOR WITH FREQUENT STOPPING FOR RESTS. PT SITTING IN CHAIR, FAMILY AT BEDSIDE. PT DENIES OTHER NEEDS AT THIS TIME.
--- NOTE | 2019-07-28 18:23 | NUR ---
PT HAD UNEVENTFUL DAY. PT WALKED IN MAX WITH P.T. AND NURSING, ABLE TO WALK 1 FULL LAP WITH FREQUENT BREAKS. PT RECEIVED OXYCODONE X2 BEFORE WALKING. PT TOLERATING REGULAR DIET, GOOD APPETITE. 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 VOIDING QS.
--- NOTE | 2019-07-28 19:23 | NUR ---
RECEIVED REPORT FROM YARELI VARGAS. pt RESTING IN BED, STATED PAIN IS "OKAY" ASSISTED TO TAKE SOCKS OFF, STRAIGHTENED BLANKETS, PROVIDED A WARM BLANKET, AND CLEARED DINNER TRAY. NO FURTHER REQUESTS AT THIS TIME. CALL LIGHT WITHIN REACH.
--- NOTE | 2019-07-28 20:35 | NUR ---
ASSESSMENT DONE. pt REPORTED 6/10 PAIN "IT'S MORE AGGREVATING" PRN GIVEN WITH SCHEDULED MEDS SEE NOV. DRESSING INTACT AND DRY, NO NEW DRAINAGE NOTED. URINAL EMPTIED. CALL LIGHT WITHIN REACH.
--- NOTE | 2019-07-28 20:35 | NUR ---
[employer] ELIGIBILITY SPECIALIST ROUNDING NOTE. PT RESTING IN BED WATCHING TV. WATER REFILLED. PT DENIES QUESTIONS OR CONCERNS. WHITE BOARD UPDATED. CALL LIGHT IN REACH.
--- NOTE | 2019-07-28 22:31 | NUR ---
ROUNDED ON pt. RESTING IN BED. DENIES PAIN AT THIS TIME. ENVIRONMENTAL SERVICES TECH IN ROOM.
--- NOTE | 2019-07-28 22:49 | NUR ---
V/S AND I&O TAKEN AND RECORDED. NO OTHER NEEDS AT THIS TIME.
--- NOTE | 2019-07-29 00:10 | NUR ---
ROUNDED ON pt. RESTING WITH EYES CLOSED, RESPIRATIONS REGULAR AND UNLABORED. CALL LIGHT WITHIN REACH.
--- NOTE | 2019-07-29 02:01 | NUR ---
ROUNDED ON pt. RESTING WITH EYES CLOSED, RESPIRATIONS REGULAR AND UNLABORED. CALL LIGHT WITHIN REACH.
--- NOTE | 2019-07-29 03:13 | NUR ---
CALL LIGHT ON. pt REQUESTING URINAL BE EMPTIED, GLASS SANDER BELT IN ROOM.
--- NOTE | 2019-07-29 03:20 | NUR ---
CALL LIGHT ANSWERED. EMPTIED URINAL. PATIENT ASKED FOR PAIN MEDS. PRIMARY RN NOTIFIED.
--- NOTE | 2019-07-29 03:31 | NUR ---
pt REQUESTED PRN PAIN MED FOR 03/28 PAIN. PRN GIVEN, pt SPECIFICALLY REQUESTED OXY. NO FURTHER REQUESTS AT THIS TIME. CALL LIGHT WITHIN REACH.
--- NOTE | 2019-07-29 04:37 | NUR ---
ROUNDED ON pt. RESTING WITH EYES CLOSED, RESPIRATIONS REGULAR AND UNLABORED. CALL LIGHT WITHIN REACH.
--- NOTE | 2019-07-29 04:53 | NUR ---
pt RESTED ON AND OFF DURING SHIFT. REQUIRED PRN PAIN MEDS X2. DRESSINGS ON LEFT LEG CLEAN AND DRY, NO NEW SHADOWING NOTED. NO IV. TOLERATING 2GM SODIUM. USES CALL LIGHT APPROPRIATELY.
--- NOTE | 2019-07-29 05:34 | NUR ---
ROUNDED ON pt. RESTING WITH EYES CLOSED, RESPIRATIONS REGULAR AND UNLABORED. URINAL EMPTIED, I&O RECORDED. CALL LIGHT WITHIN REACH.
--- NOTE | 2019-07-29 07:46 | NUR ---
0726: Pt resting in his bed with no complaints and his call henning within reach. Report recieived from Stacy DOWNS.
--- NOTE | 2019-07-29 09:09 | NUR ---
PT RESTING IN HIS BED WATCHING TV AND HE DENIES ANY PAIN OR OTHER PROBLEMS. DRESSING TO HIS LEFT HIP REMAIN INTACT WITH NO S/S OF NOTED INFECTION, OLD DRAINAGE NOTED. CALL MEZA WITHIN REACH.
--- NOTE | 2019-07-29 10:44 | NUR ---
PT UP IN CHAIR. PT HAD SHOWER. PT HAS NO NEEDS AT THIS TIME.
--- NOTE | 2019-07-29 11:10 | NUR ---
Pt states his left leg pain is now a 6 after having worked with physical therapy. Pt medicated as ordered, see emar. Pt denies any other problems at this time.
--- NOTE | 2019-07-29 13:08 | NUR ---
PT STATES HIS PAIN IS NOW GONE. HE WAS HELPED BACK TO BED PER HIS REQUEST HE STATES THAT HE IS VERY TIRED.
--- NOTE | 2019-07-29 15:54 | NUR ---
Pt states his pain is now well controled and declines the need of anything at this time.
--- NOTE | 2019-07-29 19:00 | NUR ---
BEDSIDE REPORT RECEIVED FROM OFFGOING RN NASEEM PT TALKING ON CELL PHONE. DOES NOT PARTICIPATE IN REPORT. CALL LIGHT WITHIN REACH.
--- NOTE | 2019-07-29 20:45 | NUR ---
PT ASSESSMENT COMPLETE. PT SITTING UP IN THE CHAIR. PT RATES PAIN 6/10 TO L HIP AND THIGH. PT DENIES NAUSEA OR SOB. DRESSING TO L HIP D/I WITH OLD DRAINAGE PRESENT. PT REPORTS CHRONIC WEAKNESS, NUMBNESS, AND TINGLING TO R EXTREMTIIES D/T OLD CVA. PT TRANSFERS TO THE BED WITH 1 PA AND FWW. PT TOLERATED WELL. OXYCODONE ADMINISTERED FOR PAIN, PT SELF ADMINISTERS EYE DROPS. PT DENIES FURTHER NEEDS AT THIS TIME. PERSONAL ITEMS WITHIN REACH, CALL LIGHT WITHIN REACH.
--- NOTE | 2019-07-30 00:15 | NUR ---
PT RESTING IN BED WITH EYES CLOSED. RESPIRATIONS EVEN AND UNLABORED. PT APPEARS TO BE SLEEPING. DOES NOT WAKE WHEN NONPROFIT DIRECTOR OPENS THE DOOR. CALL LIGHT IN REACH.
--- NOTE | 2019-07-30 00:20 | NUR ---
PT UTILIZES CALL LIGHT FOR URINAL TO BE EMPTIED. PT DECLINES HIS EYE DROPS, STATES HE DOES NOT LIKE TO USE THEM AFTER HE HAS GONE TO BED FOR THE NIGHT. PT DENIES FURTHER NEEDS AT THIS TIME. CALL LIGHT IN REACH.
--- NOTE | 2019-07-30 02:11 | NUR ---
CALL LIGHT ANSWERED. EMPTIED URINAL. NO OTHER NEEDS AT THIS TIME.
--- NOTE | 2019-07-30 02:54 | NUR ---
PT RESTING IN BED WITH EYES CLOSED. RESPIRATIONS EVEN AND UNALBORED. PT APPEARS TO BE SLEEPING. CALL LIGHT IN REACH.
--- NOTE | 2019-07-30 03:52 | NUR ---
RESPONDED CALL LIGHT. EMPTIED URINAL. NO OTHER NEEDS AT THIS TIME.
--- NOTE | 2019-07-30 08:03 | NUR ---
Patient was awake watching TV Empty the Urnial. water glass was full call light in reach. no othere needs at this time
--- NOTE | 2019-07-30 08:35 | NUR ---
PT SITTING UP IN BED AWAKE. ATE ALL OF BREAKFAST, YADI WELL. PT DENIES PAIN OR OTHER CONCERNS AT THIS TIME. ALERT AND ORIENTED TO ALL. DRESSING TO LEFT HIP CDI. PT REQUESTED TO GET UP TO CHAIR. 1PA WITH WALKER TO RECLINER. CALL LIGHT AND PERSONAL BELONGINGS WITHIN REACH.
--- NOTE | 2019-07-30 09:35 | NUR ---
PT MEDICATED WITH PRN OXY FOR C/O 03/28 LEFT HIP PAIN WHILE WORKING WITH O.T.
--- NOTE | 2019-07-30 12:17 | NUR ---
PT REPORTS PAIN RESOLVED AT THIS TIME. SITTING UP IN RECLINER. DENIES NEEDS OR CONCERNS AT THIS TIME. CALL LIGHT WITHIN REACH.
--- NOTE | 2019-07-30 12:50 | NUR ---
PT SITTING IN CHAIR, IN FRONT OF TV AND FAST ASLEEP. WILL CHECK BACK AGAIN
--- NOTE | 2019-07-30 15:01 | NUR ---
PT SITTING UP IN BED WATCHING TV. DENIES NEEDS OR CONCERNS AT THIS TIME. CALL LIGHT WITHIN REACH.
--- NOTE | 2019-07-30 17:11 | NUR ---
PT SITTING UP IN RECLINER WATCHING TV. DAUGHTER AT BEDSIDE. DISCUSSED FOLLOW UP APPT AND STAPLE REMOVAL. DISCUSSED WITH CHARGE NURSE AND SABA BUILDING CONSTRUCTION PROFESSOR. SABA STATES WE WILL ADDRESS TOMORROW. PT DENIES FURTHER NEEDS AT THIS TIME. CALL LIGHT WITHIN REACH.
--- NOTE | 2019-07-30 19:20 | NUR ---
BEDSIDE REPORT RECEIVED FROM OFFGOING RNJULIETTE. PT RESTING IN BED WITH EYES CLOSED, DOES NOT PARTICIPATE IN REPORT. CALL LIGHT IN REACH.
--- NOTE | 2019-07-30 22:59 | NUR ---
PT UTILIZES CALL LIGHT, REQUESTS PRN PAIN MEDICATION. PT ASSESSMENT COMPLETE. PAIN 6/10 TO L THIGH. PRN MEDCIATION ADMINISTERED. PT DENIES SOB OR NAUSEA AT THIS TIME. DRESSING TO L HIP WITH OLD DRAINAGE PRESENT. PT REPORTS NUMBNESS AND TINGLING TO R EXTREMITIES DUE TO OLD CVA. MINIMAL EDEMA PRESENT TO BLE'S. PT URINAL EMPTIED. PT DENIES FURTHER NEEDS AT THIS TIME. CALL LIGHT IN REACH.
--- NOTE | 2019-07-31 00:15 | NUR ---
PT RESTING IN BED WITH EYES CLOSED. RESPIRATIONS EVEN AND UNLABORED. PT DOES NOT WAKE WHEN ANALYTICAL LAB TECHNICIAN OPENS THE DOOR. APPEARS TO BE SLEEPING. CALL LIGHT IN REACH.
--- NOTE | 2019-07-31 05:07 | NUR ---
PT RESTING IN BED WITH EYES CLOSED. DOES NOT WAKE WHEN FOUNDRY METALLURGIST OPENS THE DOOR. APPEARS TO BE SLEEPING. CALL LIGHT IN REACH.
--- NOTE | 2019-07-31 05:58 | NUR ---
PT SLEPT VERY WELL THIS SHIFT. OXYCODONE X 1 FOR PAIN EARLY IN SHIFT. NO NAUSEA OR SOB. DRESSING TO L HIP WITH OLD SHADOWING, NO NEW DRAINAGE NOTED. NO IV SITE. 1 PA WITH FWW.
--- NOTE | 2019-07-31 08:16 | NUR ---
Patient was awake setting up in bed eating Breakfast. empty his Uranial fill his water call light in reach.
--- NOTE | 2019-07-31 09:00 | NUR ---
PT 1PA WITH WALKER TO RESTROOM. HAD SMALL BM. AMB TO RECLINER TO SIT UP FOR MORNING. PERSONAL ITEMS AND CALL LIGHT WITHIN REACH. PT REPORTS 5/10 LEFT HIP PAIN. MEDICATED WITH 5MG PRN OXY. LEFT HIP DRESSING REMAINS UNCHANGED. PT DENIES FURTHER NEEDS OR CONCERNS AT THIS TIME. ALERT AND ORIENTED.
--- NOTE | 2019-07-31 10:10 | NUR ---
CALLED DR HANEY'S OFFICE AND TALKED TO DEVELOPMENT TECHNICAL LEAD. SHE WILL FORWARD MESSAGE TO [facility] REGARDING FOLLOW UP AND TAKING DOUGLAS OUT.
--- NOTE | 2019-07-31 12:39 | NUR ---
PT SITTING UP IN CHAIR EATING LUNCH. DENIES PAIN OR OTHER NEEDS OR CONCERNS AT THIS TIME. CALL LIGHT WITHIN REACH.
--- NOTE | 2019-07-31 15:15 | NUR ---
Spoke with Constantin while he is eating lunch. He states he is walking full trips around the medical floor. Pain is minimum. Discussed concern from report this AM he is planning on not following up with his surgeon. He states he will get the Dr here to follow up. Informed the surgeon's here will not follow up on another surgeons surgery. Discussed need to return to his surgeon to be cleared and have an xray to confirm all is well. He agrees to return to [facility] to see his surgeon. Ramona Amaya is working on scheduling his appt.
--- NOTE | 2019-07-31 15:23 | NUR ---
CALLED DR HANEY OFFICE. THE SURGEON WHO DID HIS FEMUR. SCHEDULED HIM FOR AN APPT ON TuesdayJul AT 11:30 AM FOR XRAY'S AND STAPLE REMOVAL.
--- NOTE | 2019-07-31 15:30 | NUR ---
PT SITTING UP IN CHAIR WATCHING TV. DENIES NEEDS OR CONCERNS AT THIS TIME. CALL LIGHT WITHIN REACH.
--- NOTE | 2019-07-31 18:50 | NUR ---
PT IN BED APPEARS TO BE SLEEPING. EYES CLOSED, RESP EVEN AND UNLABORED.
--- NOTE | 2019-07-31 19:22 | NUR ---
PT RESTING IN BED, EYES CLOSED. SHIFT REPORT RECIEVED FROM JULIETTE DOWNS. NO NEEDS AT THIS TIME. CALL LIGHT IN REACH.
--- NOTE | 2019-07-31 19:54 | NUR ---
PT RESTING IN BED, THEN UP TO BR. SHIFT REPORT RECIEVED FROM WADE DOWNS. NO NEEDS A THIS TIME. CALL LIGHT IN REACH.
--- NOTE | 2019-07-31 20:10 | NUR ---
CALL LIGHT ANSWERED. PRN PAIN MEDICATION ADMINISTERED FOR 9/10 PAIN "DOWN LEFT LEG". pt DENIES NEED FOR ICE PACK. CALL LIGHT AND PERSONAL SUPPLIES IN REACH. URINAL EMPTIED.
--- NOTE | 2019-07-31 20:27 | NUR ---
PT RESTING IN BED, WATCHING TV. 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 [place]. LEFT HIP BANDAGES DRY AND INTACT. CMS INTACT X4. A&O X4. NO OTHER NEEDS AT THIS TIME. CALL LIGHT IN REACH.
--- NOTE | 2019-07-31 23:32 | NUR ---
PT RESTING IN BED, EYES CLOSED. RR 16, EVEN, UNLABORED. CALL LIGHT IN REACH.
--- NOTE | 2019-08-01 00:01 | NUR ---
PT OFFERED SCHEDULED EYE DROPS. PT DECLINED. NO OTHER NEEDS. CALL LIGHT IN REACH.
--- NOTE | 2019-08-01 01:32 | NUR ---
PT RESTING IN BED, EYES CLOSED. RR 18, EVEN, UNLABORED. CALL LIGHT IN REACH.
--- NOTE | 2019-08-01 03:33 | NUR ---
PT AWAKE IN ROOM. URINAL EMPTIED. NO OTHER NEEDS AT THIS TIME. CALL LIGHT IN REACH.
--- NOTE | 2019-08-01 08:48 | NUR ---
MORNING ASSESSMENT DONE, PATIENT DENIES NEEDS, ATE BREAKFAST IN BED AND DENIED WANTING TO GET UP UNTIL PHYSICAL THERAPY. PATIENT DENIES PAIN AT REST. LEFT LEG DRESSINGS INTACT WITH OLD DRAINAGE. PATIENT UP TO CHAIR AFTER BREAKFAST, TOLERATED ACTIVITY WELL WITH 1ASSIST AND WALKER.
--- NOTE | 2019-08-01 09:28 | NUR ---
PATIENT SITTING UP IN CHAIR. VITAL SIGNS AND I&O DONE. LINENS CHANGED. CALL LIGHT WITHIN REACH. NO OTHER NEEDS AT THIS TIME
--- NOTE | 2019-08-01 11:05 | NUR ---
PATIENT UP TO CHAIR, RATES LEFT LEG PAIN 9/10, AND WAS UNABLE TO PARTICIPATE IN PHYSICAL THERAPY OF YET.
--- NOTE | 2019-08-01 12:08 | NUR ---
PATIENT GIVEN SENNA THIS MORNING, PATIENT REPORTED THAT HE HAS REFUSED TO TAKE THESE PREVIOUSLY. PATIENT NO REPORTS "TUMMY IS CHURNING, I DON'T WANT TO TAKE THAT AGAIN." PATIENT REPORTS PAIN IS 7/10 AND COMING DOWN AFTER PAIN MEDICATIONS.
--- NOTE | 2019-08-01 13:00 | NUR ---
Spoke with Constantin. Discussed possibility of dc in the next day or so as he has met his goals. He states he just doesn't feel well now as he is painful from PT and his stomach is upset. Denies need for the Rn as he was recently medicated. States he feels he can go home.
--- NOTE | 2019-08-01 13:08 | NUR ---
PATIENT RESTING IN BED. IN ROOM. I&O DONE. CALL LIGHT WITHIN REACH. NO OTHER NEEDS AT THIS TIME
--- NOTE | 2019-08-01 14:55 | NUR ---
PATIENT UP WITH STANDBY ASSIST TO BATHROOM.
--- NOTE | 2019-08-01 18:05 | NUR ---
PATIENT HAS DONE WELL WITH PHYSICAL THERAPY TODAY, PAIN MANAGED WITH ORAL PAIN MEDICATIONS. PATIENT HAD SEVERAL BOWEL MOVEMENTS TODAY, SENNA WAS REMOVED FROM MEDICATION LIST TODAY.
--- NOTE | 2019-08-01 18:14 | NUR ---
PATIENT RESTING IN BED. I&O DONE. CALL LIGHT WITHIN REACH. NO OTHER NEEDS AT THIS TIME
--- NOTE | 2019-08-01 19:30 | NUR ---
PT RESTING IN BED, EYS CLOSED. SHIFT REPORT RECIEVED FROM CHRISTAL DOWNS. RR 16, EVEN, UNLABORED. CALL LIGHT IN REACH.
--- NOTE | 2019-08-01 20:20 | NUR ---
PT STATES HE HAS 6/10 "SHOOTING" PAIN IN LLE, PRN PAIN MED PROVIDED. ASSESSMENT COMPLETED. BANGAGES INTACT. SCHEDULED MEDS PROVIDED. CMS INTACT IN LLE. NO OTHER NEEDS AT THIS TIME. CALL LIGHT IN REACH.
--- NOTE | 2019-08-01 20:29 | NUR ---
ROUNDED CHARGE. PATIENT IS RESTING IN BED. JUVENAL HAWKINS RN PRESENT IN ROOM. PATIENT DENIES ANY COMMENTS, QUESTIONS OR CONCERNS. NO NEEDS NOTED. CALL LIGHT IN REACH.
--- NOTE | 2019-08-01 23:10 | NUR ---
PT RESTING IN BED, EYES CLOSED. RR 16, EVEN, UNLABORED. CALL LIGHT IN REACH.
--- NOTE | 2019-08-02 01:28 | NUR ---
PT AWAKE IN ROOM. URINAL EMPTIED. NO OTHER NEEDS. CALL LIGHT IN REACH.
--- NOTE | 2019-08-02 03:31 | NUR ---
PT RESTING IN BED, EYES CLOSED. RR 16, EVEN, UNLABORED. CALL LIGHT IN REACH.
--- NOTE | 2019-08-02 05:56 | NUR ---
PT RESTING IN BED, EYES CLOSED. RR 16, EVEN, UNLABORED. CALL LIGHT IN REACH.
--- NOTE | 2019-08-02 06:27 | NUR ---
PT SLEPT MOST OF THE SHIFT. LLE PAIN MANAGED WITH SCHEDULED AND PRN PAIN MEDS. UO SUFFICIENT. VSS. AXO X4.
--- NOTE | 2019-08-02 07:34 | NUR ---
0710: BEDSIDE REPORT RECIEVED FROM JUVENAL DOWNS. PT SLEEPING AT THIS TIME, CALL MEZA WITHIN REACH.
--- NOTE | 2019-08-02 08:03 | NUR ---
PT RESTING IN HIS BED WITH NO COMPLAINTS OF PAIN OR OTHER PROBLEMS. INCISION SITES DRESSING REMAIN INTACT WITH SOME OLD DRAINAGE NOTED ON THE UPPER TWO DRESSING. NO S/S OF INFECTION NOTED, GOOD CIRCULATION NOTED. CALL MEZA WITHIN REACH. PT WATCHIN THE NEWS AT THIS TIME.
--- NOTE | 2019-08-02 09:53 | NUR ---
Attending MDT meeting with transitional care team. Pt is very happy with his care per his statements, and feels like the transitional program has been very beneficial to him, per his statement of feeling like he has met his goals and is "ready to go home". We discussed our desire for him to go home, and be successful at home, without being re-admitted to the hospital. He agreed, and verbalized that he was ready to go home, and with the help of his be able to take care of himself at home. He was very pleasant with the team, and joked with the team during his MDT meeting. He is very motivated to go home to his , and his many cats and dogs that are his "babies", which he has missed while being here in the hospital. Plan to discharge jeniffer as he is meeting his goals, he will have PT again today, and case management/discharge planning is working with his to ensure on durable medical equipment is delivered to his house prior to discharge, helping to ensure a safe transition to home.
--- NOTE | 2019-08-02 10:15 | NUR ---
Pt denies any pain or problems at this time. He continues watching the news. Call henning within reach.
--- NOTE | 2019-08-02 10:30 | NUR ---
MDT completed with pt and OT, PC, TC web content & social media manager, Neurodiagnostic Tech, RT, CM, and Dc meeting planner present. Reviewed goals which Constantin has met for PT and OT. He denies concerns for dc, DC meeting planner will call and confirm has assistive devices needed for dc. PT will need HH PT, OT, and aid on DC. DC letter given and Ombudsman letter completed.
--- NOTE | 2019-08-02 11:00 | NUR ---
Dr Morrow aware that the post-op dressings remain in place. The pt is to see his surgon on Tuesday per Dr Morrow. The area around the dressings continues to show no s/s of infection. Old faiding bruising noted.
--- NOTE | 2019-08-02 11:12 | NUR ---
Pt working with physical therapy at this time.
--- NOTE | 2019-08-02 12:39 | NUR ---
Pt sitting up in the chair visiting on the phone with his brother. Constantin got off the phone and he denies any problems and states his pain is under good control that "I can deal with it". He rates the pain at 4/10. Call henning within reach.
--- NOTE | 2019-08-02 15:11 | NUR ---
Pt denies any problems at this time.
[2019-08-02] MEDS ORDERED: FOLIC ACID1 MG PO (15:22)
--- NOTE | 2019-08-02 15:39 | NUR ---
LEFT HIP DRESSINGS CHANGED ORDERED. THERE IS 4 INCISIONS UNDER 3 DRESSINGS. ALL SIGHTS ARE CDI WITH DOUGLAS IN PLACE AND WITH NO S/S OF INFECTION NOTED. PT TOLERATED THE CHANGE WELL AND CONTINUES TO DENIES ANY PAIN.
--- NOTE | 2019-08-02 20:00 | NUR ---
RECEIVED REPORT AT 1900, FOUND PT IN BED WATCHING TV. PT HAD NO NEEDS OR COCERNS AT THAT TIME.
--- NOTE | 2019-08-02 22:14 | NUR ---
V/S ARE WDL AT THIS TIME. PT DENIES PAIN, DRESSING ON LEFT UPPER THIGH/LOWER HIP AREA ARE C/D/I. OTHER PARTS OF ASSESSMENT WERE BENIGN. PT STATED TO NOT WAKE HIM UP FOR EYE DROPS AT NIGHT IF HE IS SLEEPING.
--- NOTE | 2019-08-03 00:16 | NUR ---
PT APPEARS TO BE SLEEPING AT THIS TIME. NO NEW CONCERNS NOTED SO FAR.
--- NOTE | 2019-08-03 03:15 | NUR ---
URINAL WAS EMPTIED PER PT REQUEST. PT BACK TO SLEEP. NO NEW CONCERNS NOTED. PT HAD NO OTHER NEEDS OR CONCERNS.
--- NOTE | 2019-08-03 06:30 | NUR ---
PT OVERALL HAD A UNEVENTFUL NIGHT. SLEPT ALL NIGHT. EYE DROPS AT 0000/0400 WERE HELD PER PT WISHES. V/S ARE WDL. PAIN HAS NOT BEEN AN ISSUE, URINE OUTPUT IS ADEQUATE, DRESSING ON LEFT THIGH/LOWER HIP IS C/D/I. NO NEW CONCERNS NOTED SO FAR THIS SHIFT. PT ONLY CALLED RN STATION ONCE TO HAVE HIS URINAL EMPTIED.
--- NOTE | 2019-08-03 07:34 | NUR ---
0732: Pt resting in his bed with no complaints. Call henning within reach. Bedside report recieved from Izabela DOWNS.
--- NOTE | 2019-08-03 08:54 | NUR ---
PT AMBULATED TO HIS CHAIR WITH HIS WALKER AND A SBA, HE TOLERATED THE MOVMENT WELL AND HE DENIES ANY PROBLEMS AT THIS TIME. LEFT HIP/LEG DRESSINGS ALL CDI.
--- NOTE | 2019-08-03 10:26 | NUR ---
PT GIVEN DISCHARGE WRITTEN AND VERBAL INSTUCTIONS OF WHICH HE STATES UNDERSTANDING. RAH DOWNS FROM DISCHARGE PLANNING IS TO SEE THE PT IN REGARDS TO HOME HELATH ORDERED.
--- NOTE | 2019-08-03 10:30 | NUR ---
THE PT STATES THAT HIS WILL BE IN TO TAKE HIM HOME AROUND 1330.
--- NOTE | 2019-08-03 11:00 | NUR ---
In and spoke with Constantin and his , Chante. She has obtained transfer shower , antwon, and keila for pt. Informed all papers have been faxed to [facility] and they stated they will call them on Tuesday or Tuesday.
--- NOTE | 2019-08-03 11:02 | NUR ---
Pt resting in his chair watching tv following his shower. The dressings are remains cdi and he denies pain or any other problems.
== END 2019-08-03 13:45 | disposition home health service (06) | DRG 561 ==
LOC: MS 10:15
PROVIDERS: ADMIT Internal Medicine
DX: S72.22XD Displaced subtrochanteric fracture of left femur, subsequent encounter for closed fracture with routine healing (principal); W19.XXXD Unspecified fall, subsequent encounter; I10 Essential (primary) hypertension; D64.9 Anemia, unspecified; I69.898 Other sequelae of other cerebrovascular disease; H53.47 Heteronymous bilateral field defects; Z79.02 Long term (current) use of antithrombotics/antiplatelets; Z79.891 Long term (current) use of opiate analgesic; Z98.890 Other specified postprocedural states; Z79.899 Other long term (current) drug therapy
CPT/HCPCS: 36415; 82607; 82728; 82746; 83540; 84466; 85025; 85045; 97110; 97116; 97163; 97167; 97530; 97535; J1650; Q0138

== ENCOUNTER 2021-07-02 12:16 | Emergency (ER) | payer MEDICARE, OTHER ==
[~2021-07-02] VITALS: Ht 177.8 cm; Wt 85.7 kg
[~2021-07-02 12:16] MED LIST changes: +FOLIC ACID1 MG PO; +NORVASC10 MG PO; +OCUFLOX5 ML OD; +PLAVIX75 MG PO; +SYSTANE ULTRA 010 ML OU
--- OUTSIDE RECORDS SUMMARY | 2021-07-02 12:18 | XMS ---
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 PHONE: [phone] Shavon has no Care Guidelines for this patient. Cesar VISIT COUNT (12 MO.) [address] [facility] TOTAL 1 NOTE: Visits indicate total known visits. ED/UCC VISIT TRACKING (12 MO.) 07/02/2021 12:[address] [facility] [place] TYPE: Emergency COMPLAINT: - FALL,DIZZY INPATIENT VISIT TRACKING (12 MO.) No inpatient visits to display in this time frame [email or web address]
--- NOTE | 2021-07-03 07:20 | EKG ---
[facility] [address] [place] [address] Signed Normal sinus rhythm Normal ECG When compared with ECG of 15-JUL-2019 15:17, premature ventricular complexes are no longer present T wave inversion no longer evident in Anterior leads Confirmed by NIMISHA DAO MD ([id number]) on 07/03/2021 7:20:34 AM Electronically Signed By: NIMISHA DAO MD 07/03/21 0720 PATIENT NAME: DAWIT CHOI JR Electrocardiogram DATE OF : 43 PHYSICIAN: NIMISHA DAO MD REPORT #: [id number] REPORT IS CONFIDENTIAL AND NOT TO BE RELEASED WITHOUT AUTHORIZATION
== END 2021-07-02 16:17 | disposition short-term general hospital (02) ==
LOC: ED 12:16
DX: S72.141A Displaced intertrochanteric fracture of right femur, initial encounter for closed fracture (principal); U07.1 COVID-19; I10 Essential (primary) hypertension; W18.30XA Fall on same level, unspecified, initial encounter; Z86.73 Personal history of transient ischemic attack (TIA), and cerebral infarction without residual deficits; Z87.891 Personal history of nicotine dependence; Z79.899 Other long term (current) drug therapy
CPT/HCPCS: 70450; 73502; 80053; 85025; 85610; 93005; 93010; 96374; 96375; 96376; 99285-25; C9803; J1170; J2405; M0243; Q0244; U0003